=== PATIENT | male | born 1985 | race Caucasian/White ===

== ENCOUNTER 2020-12-12 00:55 | Emergency (ER) | payer BC, SELFPAY ==
[2020-12-12 01:05] VITALS: BP 150/78; PULSE 79; RESP 18; TEMP 36.6; O2SAT 98; BMI 40.0
[2020-12-12 01:40] LABS: MANUAL DIFF FLAG NO
[2020-12-12 01:43] LABS: Basophils Absolute Auto 0.1 X10*3/uL (0.0-0.2); Eosinophils Absolute Auto 0.3 X10*3/uL (0.0-0.4); Eosinophils Percent Auto 2.6 % (0-4); Hematocrit 42.4 % (42-52); Hemoglobin 13.9 g/dl (14.0-18.0); Imm Gran Abs Auto 0.04 X10*3/uL (0.00-0.03); Imm Gran Pct Auto 0.4 % (0.0-0.4); Lymphocytes Percent Auto 28.9 % (20-40); Mean Corpuscular HGB Conc 32.8 g/dl (31.0-36.0); Mean Corpuscular Hemoglobin 27.7 pg (27.0-33.0); Mean Corpuscular Volume 84.6 fL (80-98); Mean Platelet Volume 10.4 fL (9.4-12.4); Monocytes Absolute Auto 0.5 X10*3/uL (0.1-1.2); Monocytes Percent Auto 4.9 % (2-11); Neutrophils Absolute Auto 6.3 X10*3/uL (2.0-8.3); Neutrophils Percent Auto 62.2 % (45-73); Platelet Count 230 X10*3/uL (160-400); Red Blood Count 5.01 X10*6/uL (4.60-5.80); Red Cell Distribution Width 13.9 % (11.0-16.0); White Blood Count 10.2 X10*3/uL (4.8-10.8)
[2020-12-12 01:47] LABS: Glucose Urine UA NEG (NEG); Leukocyte Esterase Urine NEG (NEG); Nitrite Urine NEG (NEG); Specific Gravity - Urine >= 1.030 (1.005-1.025); Urine Blood NEG (NEG); Urine Ketones NEG (NEG); Urine Protein NEG (NEG-TRACE)
[2020-12-12 01:51] LABS: Appearance Urine CLEAR; Color Urine DARK YELLOW; UACC Culture Trigger NO
[2020-12-12 02:08] LABS: Lipase 43 U/L (8-78)
[2020-12-12 02:11] LABS: Alanine Aminotransferase 27 U/L (0-40); Albumin Level 4.1 g/dL (3.5-5.0); Alkaline Phosphatase 67 U/L (39-117); Anion Gap 15 (12-20); Aspartate Amino Transferase 19 U/L (5-37); Bilirubin Total 0.4 mg/dL (0.0-1.0); Blood Urea Nitrogen 19 mg/dL (9-16); Calcium 8.7 mg/dL (8.4-10.2); Carbon Dioxide 20 mmol/L (22-29); Chloride 109 mmol/L (96-108); Creatinine Clr Calc Pharmacy 141.8; Estimated Glomerular Filt Rate > 60; Glucose Random 143 mg/dL (60-115); Potassium 3.6 mmol/l (3.3-5.1); Sodium 140 mmol/L (135-145)
--- NOTE | 2020-12-12 03:53 | ED.ABDPAIN ---
HPI - Abdominal Pain General Chief Complaint: Abdominal Pain Stated Complaint: Abd pain Time Seen by Provider: 12/12/20 01:07 Source: patient Mode of arrival: ambulatory History of Present Illness HPI narrative: This is a 35-year-old male with history of Crohn's and is not currently on any medication who presents with onset of diffuse abdominal discomfort at approximately 1:00 p.m. yesterday that has remained constant, crampy and not associated with any fevers, chills, nausea, vomiting, but states he had a large bowel movement prior to coming in and he states that the pain increased afterwards. The bowel movement was not diarrheal in nature and did not contain any observed blood. Otherwise, patient denies any urinary pain/burning/frequency Related Data Allergies Allergy/AdvReac Type Severity Reaction Status Date / Time No Known Allergies Allergy Verified 12/12/20 01:13 [No Known Allergies*] Review of Systems Review of Systems Pertinent positives and negatives as stated in HPI Physical Exam Vital Signs: Vital Signs: Last Vital Signs Temp 97.9 F 12/12/20 01:05 Pulse 60 12/12/20 05:12 Resp 18 12/12/20 01:05 BP 112/57 L 12/12/20 05:12 Pulse Ox 98 12/12/20 01:05 Body Mass Index 40.0 VITAL SIGNS: Reviewed. GENERAL: Well developed, well nourished, in no acute distress. HEAD: Normocephalic/atraumatic, EYES: PERRLA, EOMI EARS: Ext canals without abnormality, TMs non-bulging and non-erythematous NOSE: Nares patent bilateral OROPHARYNX: no oral lesions noted, posterior pharynx clear and non-erythematous without noted tonsillar enlargement/erythema/exudates NECK: Supple, no adenopathy LUNGS: Normal breath sounds. No adventitious sounds or accessory muscle use. SpO2<98> CARDIOVASCULAR: Regular rate and rhythm without noted murmurs, no JVD or lower extremity edema. ABDOMEN: Soft, diffusely tender without rebound, non-distended with bowel sounds. SKIN: Inspection of the skin reveals no rashes NEUROLOGIC: Alert and oriented x 4. Course Course Course Narrative: This is a 35-year-old male with history and clinical presentation likely consistent with Crohn's flare, doubt SBO. Review of all investigations is negative for any acute findings to include CT scan negative for any intra-abdominal or intrapelvic abnormalities. All results and findings were discussed with patient at bedside to include the findings several nonobstructing kidney stones which he was informed may have passed and that may have been 1 of the reasons for his abdominal discomfort. Patient was discharged to home in stable condition. MDM - Abdominal Pain Lab Data Result diagrams: 12/12/20 01:24 12/12/20 01:24 Labs: Lab Results 12/12/20 12/12/20 12/12/20 Range/Units 01:24 01:24 01:24 WBC 10.2 (4.8-10.8) X10*3/uL RBC 5.01 (4.60-5.80) X10*6/uL Hgb 13.9 L (14.0-18.0) g/dl Hct 42.4 (42-52) % MCV 84.6 (80-98) fL MCH 27.7 (27.0-33.0) pg MCHC 32.8 (31.0-36.0) g/dl RDW 13.9 (11.0-16.0) % Plt Count 230 (160-400) X10*3/uL MPV 10.4 (9.4-12.4) fL Immature Gran % (Auto) 0.4 (0.0-0.4) % Neut % (Auto) 62.2 (45-73) % Lymph % (Auto) 28.9 (20-40) % [place] % (Auto) 4.9 (2-11) % Eos % (Auto) 2.6 (0-4) % Baso % (Auto) 1.0 (0-2) % Lymph # (Auto) 3.0 (1.2-4.9) X10*3/uL [place] # (Auto) 0.5 (0.1-1.2) X10*3/uL Eos # (Auto) 0.3 (0.0-0.4) X10*3/uL Baso # (Auto) 0.1 (0.0-0.2) X10*3/uL Abs Immat Gran (auto) 0.04 H (0.00-0.03) X10*3/uL Absolute Neuts (auto) 6.3 (2.0-8.3) X10*3/uL Absolute Nucleated RBC 0.000 (0.0-0.012) X10*3/uL Nucleated RBC % (auto) 0.0 (0.0-0.2) /100WBC Sodium 140 (135-145) mmol/L Potassium 3.6 (3.3-5.1) mmol/l Chloride 109 H (96-108) mmol/L Carbon Dioxide 20 L (22-29) mmol/L Anion Gap 15 (12-20) BUN 19 H (9-16) mg/dL Creatinine 1.02 (0.5-1.4) mg/dL Estim Creat Clear Calc 141.8 Estimated GFR > 60 Random Glucose 143 H (60-115) mg/dL Calcium 8.7 (8.4-10.2) mg/dL Total Bilirubin 0.4 (0.0-1.0) mg/dL AST 19 (5-37) U/L ALT 27 (0-40) U/L Alkaline Phosphatase 67 (39-117) U/L Total Protein 7.0 (6.5-8.0) g/dL Albumin 4.1 (3.5-5.0) g/dL Lipase 43 (8-78) U/L Urine Color Urine Appearance Urine pH (5.0-8.0) Ur Specific [place] (1.005-1.025) Urine Protein (NEG-TRACE) MG/DL Urine Glucose (UA) (NEG) MG/DL Urine Ketones (NEG) MG/DL Urine Blood (NEG) Urine Nitrite (NEG) Ur Leukocyte Esterase (NEG) 12/12/20 Range/Units 01:24 WBC (4.8-10.8) X10*3/uL RBC (4.60-5.80) X10*6/uL Hgb (14.0-18.0) g/dl Hct (42-52) % MCV (80-98) fL MCH (27.0-33.0) pg MCHC (31.0-36.0) g/dl RDW (11.0-16.0) % Plt Count (160-400) X10*3/uL MPV (9.4-12.4) fL Immature Gran % (Auto) (0.0-0.4) % Neut % (Auto) (45-73) % Lymph % (Auto) (20-40) % [place] % (Auto) (2-11) % Eos % (Auto) (0-4) % Baso % (Auto) (0-2) % Lymph # (Auto) (1.2-4.9) X10*3/uL [place] # (Auto) (0.1-1.2) X10*3/uL Eos # (Auto) (0.0-0.4) X10*3/uL Baso # (Auto) (0.0-0.2) X10*3/uL Abs Immat Gran (auto) (0.00-0.03) X10*3/uL Absolute Neuts (auto) (2.0-8.3) X10*3/uL Absolute Nucleated RBC (0.0-0.012) X10*3/uL Nucleated RBC % (auto) (0.0-0.2) /100WBC Sodium (135-145) mmol/L Potassium (3.3-5.1) mmol/l Chloride (96-108) mmol/L Carbon Dioxide (22-29) mmol/L Anion Gap (12-20) BUN (9-16) mg/dL Creatinine (0.5-1.4) mg/dL Estim Creat Clear Calc Estimated GFR Random Glucose (60-115) mg/dL Calcium (8.4-10.2) mg/dL Total Bilirubin (0.0-1.0) mg/dL AST (5-37) U/L ALT (0-40) U/L Alkaline Phosphatase (39-117) U/L Total Protein (6.5-8.0) g/dL Albumin (3.5-5.0) g/dL Lipase (8-78) U/L Urine Color DARK YELLOW Urine Appearance CLEAR Urine pH 6.0 (5.0-8.0) Ur Specific [place] >= 1.030 H (1.005-1.025) Urine Protein NEG (NEG-TRACE) MG/DL Urine Glucose (UA) NEG (NEG) MG/DL Urine Ketones NEG (NEG) MG/DL Urine Blood NEG (NEG) Urine Nitrite NEG (NEG) Ur Leukocyte Esterase NEG (NEG) Discharge Plan Discharge Clinical Impression: Abdominal pain Qualifiers: Abdominal location: unspecified location Qualified Code(s): R10.9 - Unspecified abdominal pain Patient Disposition: Home, Self-Care Instructions: Abdominal Pain (ED), Kidney Stones (ED) Additional Instructions: 1. Increase fluid hydration especially with water. Avoid carbonated and caffeinated beverages as much as possible. 2. Tylenol 1000 mg, orally, every 6 hours as needed pain control. Do not exceed 4000 mg within 24 hours. 3. Ibuprofen 400 mg, orally with milk or food, every 6 hours as needed for pain control. 4. Please follow-up with your primary care provider for re-evaluation outpatient management should your symptoms persist. 5. Please consider follow-up with a urologist for further evaluation of your kidney stones. Please do not hesitate to return to the emergency department should you have any acute worsening of your symptoms. Referrals: Physician,Unknown [Primary Care Provider] - 2 days (Evaluation of patient management abdominal discomfort) PMFSH Past Medical History Source: nursing notes reviewed Medical History Acute Crohn's disease GERD (gastroesophageal reflux disease) Pericarditis Social History Social History Smoked in Last 30 Days: No Advance Directives: No Advance Directives Information Provided: No
--- NOTE | 2020-12-12 03:54 | CT_ITS ---
EXAMINATION: CT ABDOMEN AND PELVIS WITH CONTRAST CLINICAL INFORMATION: Abdominal pain. COMPARISON: None TECHNIQUE: Multidetector volumetric images were obtained from the superior aspect of the liver through the pubic symphysis following administration 100 mL of Omnipaque 350 intravenous contrast. Sagittal and coronal reformatted images were obtained on the technologist's workstation. Oral contrast: No This CT examination was performed using dose optimization techniques as appropriate, variously including the following: *Automated exposure control *Adjustment of mA and/or kV according to patient size (this includes techniques or standardized protocols for targeted exams where dose is matched to indication/reason for exam; i.e. extremities or head) *Use of iterative reconstruction technique DLP: 1042 mGy-cm FINDINGS: LUNG BASES: The visualized lung bases are unremarkable. LIVER, GALLBLADDER, AND BILIARY TREE: Relative hypoattenuation of the hepatic parenchyma is most consistent with steatosis. Liver is enlarged, measuring 20 cm craniocaudal. No focal lesions or ductal dilatation. Hepatic contour is normal. The gallbladder is unremarkable with no evidence of radiopaque gallstones, gallbladder wall thickening, or obvious pericholecystic inflammatory changes. PANCREAS: Unremarkable. SPLEEN: Borderline enlarged, measuring 14.1 cm in greatest diameter. ADRENAL GLANDS: Unremarkable. KIDNEYS AND URETERS: Multiple bilateral nonobstructing renal calculi are identified, at least 4 in each kidney. These measure up to 2 mm in diameter. The kidneys are normal in size, shape, and attenuation. No hydronephrosis or hydroureter. No perinephric stranding. The right renal collecting system may be partially duplicated. Alternatively, there is an accessory vascular structure extending from the right renal sinus inferiorly along the course of the ureter, terminating at the level of L4. The latter possibility is favored as this structure is relatively dense, closer to the attenuation value of a vessel than a ureter. Ureters are otherwise normal in appearance. BLADDER: Unremarkable. GASTROINTESTINAL TRACT: Stomach, small bowel, and colon are normal in caliber. No bowel wall thickening or surrounding inflammatory changes. Appendix is normal. No intraperitoneal free fluid or free air. ABDOMINAL WALL: No significant hernia is appreciated. LYMPH NODES: Normal. VASCULAR: Unremarkable. PELVIC VISCERA: A few dystrophic calcifications are present in the prostate gland. Prostate gland is otherwise normal. OSSEOUS STRUCTURES: No acute osseous abnormalities. Mild anterior wedging of the T12 and L1 vertebral bodies is likely developmental. Posterior disc protrusions are present at L4-L5 and L5-S1. No acute fractures are identified. CT/CT abdomen pelvis w con IMPRESSION: No acute intra-abdominal or intrapelvic abnormalities. Multiple nonobstructing bilateral renal calculi. No evidence of obstructive uropathy. Hepatic steatosis. Mild hepatosplenomegaly, potentially related to body habitus.
[2020-12-12] MEDS: 0.9 % Sodium Chloride 1,000 ML 999 ML IV (04:39)
[2020-12-12] MEDS: iohexoL 350 MG/ML 100 ML INFUS..BTL IV (04:42)
[2020-12-12 05:12] VITALS: BP 112/57; PULSE 60
[2020-12-12] MEDS: Ketorolac Tromethamine 15 MG/ML VIAL IVPUSH (05:18)
[2020-12-12] MEDS: Acetaminophen 325 MG TABLET 975 MG PO (05:18)
== END 2020-12-12 06:06 | disposition home or self-care (01) ==
PROVIDERS: Emergency Provider Student in an Organized Health Care Education/Training Program
DX: R10.9 Unspecified abdominal pain (principal); N20.0 Calculus of kidney; K50.90 Crohn's disease, unspecified, without complications
CPT/HCPCS: 36415; 74177; 80053; 81003; 83690; 85025; 96361; 96374; 99284; J1885; Q9967

== ENCOUNTER 2020-12-18 15:36 | Emergency (ER) | payer BC, SELFPAY ==
[2020-12-18 16:14] VITALS: BP 134/92; PULSE 115; RESP 20; TEMP 36.8; O2SAT 98; BMI 39.3
[2020-12-18 17:15] LABS: MANUAL DIFF FLAG NO
[2020-12-18 17:23] LABS: Basophils Absolute Auto 0.1 X10*3/uL (0.0-0.2); Basophils Percent Auto 0.3 % (0-2); Eosinophils Absolute Auto 0.1 X10*3/uL (0.0-0.4); Eosinophils Percent Auto 0.7 % (0-4); Hematocrit 52.6 % (42-52); Hemoglobin 17.2 g/dl (14.0-18.0); Imm Gran Abs Auto 0.06 X10*3/uL (0.00-0.03); Imm Gran Pct Auto 0.3 % (0.0-0.4); Lymphocytes Absolute Auto 1.2 X10*3/uL (1.2-4.9); Lymphocytes Percent Auto 7.1 % (20-40); Mean Corpuscular HGB Conc 32.7 g/dl (31.0-36.0); Mean Corpuscular Hemoglobin 27.8 pg (27.0-33.0); Mean Platelet Volume 10.2 fL (9.4-12.4); Monocytes Percent Auto 5.7 % (2-11); Neutrophils Percent Auto 85.9 % (45-73); Platelet Count 307 X10*3/uL (160-400); Red Blood Count 6.19 X10*6/uL (4.60-5.80); Red Cell Distribution Width 14.2 % (11.0-16.0); White Blood Count 17.4 X10*3/uL (4.8-10.8)
[2020-12-18 17:42] LABS: Anion Gap 15 (12-20); Blood Urea Nitrogen 14 mg/dL (9-16); Calcium 9.3 mg/dL (8.4-10.2); Carbon Dioxide 22 mmol/L (22-29); Chloride 109 mmol/L (96-108); Creatinine Clr Calc Pharmacy 126.7; Estimated Glomerular Filt Rate > 60; Glucose Random 93 mg/dL (60-115); Potassium 4.3 mmol/l (3.3-5.1); Sodium 142 mmol/L (135-145)
[2020-12-18 19:23] VITALS: BP 138/85; PULSE 111; RESP 20; TEMP 37.3; O2SAT 95
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
[2020-12-18 20:09] LABS: Alanine Aminotransferase 34 U/L (0-40); Alkaline Phosphatase 87 U/L (39-117); Aspartate Amino Transferase 23 U/L (5-37); Bilirubin Direct 0.3 mg/dL (0.0-0.5); Bilirubin Total 0.7 mg/dL (0.0-1.0); Lipase 93 U/L (8-78); Total Protein 8.5 g/dL (6.5-8.0)
[2020-12-18] MEDS: Ketorolac Tromethamine 30 MG/ML VIAL IVPUSH (20:29)
[2020-12-18] MEDS: ondansetron HCL 4 MG/2 ML VIAL IVPUSH (20:31)
[2020-12-18 20:32] VITALS: BP 140/89; PULSE 104; RESP 16; TEMP 37.4; O2SAT 95
[2020-12-18] MEDS: 0.9 % Sodium Chloride 1,000 ML 999 ML IV ×3 (20:32→22:32)
[2020-12-18 20:48] LABS: COVID-19 Test Negative (Negative)
[2020-12-18 21:24] VITALS: RESP 18
[2020-12-18] MEDS: Morphine Sulfate 4 MG/ML CARTRIDGE IVPUSH ×2 (21:24→22:31)
[2020-12-18 21:29] LABS: CDIFF Ag Negative (Negative); CDIFF Internal ctrl Dots and bkg OK (V); CDiff Toxin Negative (Negative)
--- NOTE | 2020-12-18 22:12 | CT_ITS ---
EXAMINATION: CT ABDOMEN AND PELVIS WITH CONTRAST CLINICAL INFORMATION: Right-sided abdominal pain with severe diarrhea COMPARISON: CT abdomen pelvis 12/12/2019 TECHNIQUE: Multidetector volumetric images were obtained from the superior aspect of the liver through the pubic symphysis following administration 85 mL of Omnipaque 350 intravenous contrast. Sagittal and coronal reformatted images were obtained on the technologist's workstation. Oral contrast: No This CT examination was performed using dose optimization techniques as appropriate, variously including the following: *Automated exposure control *Adjustment of mA and/or kV according to patient size (this includes techniques or standardized protocols for targeted exams where dose is matched to indication/reason for exam; i.e. extremities or head) *Use of iterative reconstruction technique DLP: 995 mGy-cm FINDINGS: LUNG BASES: The visualized lung bases are unremarkable. LIVER, GALLBLADDER, AND BILIARY TREE: Liver demonstrates slightly decreased attenuation suggesting hepatic steatosis. There is some areas of focal fatty sparing around the gallbladder. No focal hepatic mass or bile duct dilatation is seen. The gallbladder is unremarkable with no evidence of radiopaque gallstones, gallbladder wall thickening, or obvious pericholecystic inflammatory changes. PANCREAS: Unremarkable. SPLEEN: Unremarkable. ADRENAL GLANDS: Unremarkable. KIDNEYS AND URETERS: The kidneys are normal in size, shape, and attenuation. Bilateral small nonobstructing renal calculi are present with at least 6 stones on the right and 5 on the left. No hydronephrosis or hydroureter seen. No perinephric stranding. BLADDER: Unremarkable. GASTROINTESTINAL TRACT: The small and large bowel are unremarkable. The appendix is none seen but there is no evidence of appendicitis.. ABDOMINAL WALL: No significant hernia is appreciated. LYMPH NODES: Some prominent courtney hepatis nodes are seen the largest measuring 2.9 x 1.5 x 3.3 cm (series 3 image 32). No retroperitoneal lymphadenopathy is seen. VASCULAR: Unremarkable. PELVIC VISCERA: Unremarkable. OSSEOUS STRUCTURES: Unremarkable. CT/CT abdomen pelvis w con IMPRESSION: 1. Bilateral small nonobstructing renal calculi 2. A cause for the right-sided pain and diarrhea has not been found. 3. Prominent courtney hepatis nodes. 4. Hepatic steatosis
[2020-12-18] MEDS: diphenhydrAMINE HCL 50 MG/ML VIAL IVPUSH (22:30)
[2020-12-18] MEDS: Metoclopramide HCl 10 MG/2 ML VIAL IVPUSH (22:30)
[2020-12-18 22:55] VITALS: BP 123/73; PULSE 93; RESP 16; O2SAT 97
[2020-12-18] MEDS: iohexoL 350 MG/ML 100 ML INFUS..BTL 85 ML IV (23:48)
[2020-12-19 01:30] VITALS: BP 114/55; PULSE 91; RESP 18; TEMP 37.2; O2SAT 95
== END 2020-12-19 01:35 | disposition home or self-care (01) ==
PROVIDERS: Emergency Provider Emergency Medicine Emergency Medical Services
DX: K52.9 Noninfective gastroenteritis and colitis, unspecified (principal); Z87.891 Personal history of nicotine dependence; Z20.822 Contact with and (suspected) exposure to COVID-19; Z79.899 Other long term (current) drug therapy
CPT/HCPCS: 36415; 74177; 80048; 80076; 83690; 85025; 87045; 87046; 87324; 87449; 87635; 96361; 96374; 96375; 96376; 99285; J1200; J1885; J2270; J2405; J2765; Q9967

== ENCOUNTER 2021-04-15 18:46 | Emergency (ER) | payer BC, SELFPAY ==
--- NOTE | ~2021-04-15 | CT_ITS ---
EXAMINATION: CT ABDOMEN AND PELVIS WITHOUT CONTRAST CLINICAL INFORMATION: Left flank pain COMPARISON: 12/18/2020 TECHNIQUE: Multidetector volumetric imaging was performed from the superior aspect of the liver through the pubic symphysis. Sagittal and coronal reformatted images were obtained on the technologist's workstation. This CT examination was performed using dose optimization techniques as appropriate, variously including the following: *Automated exposure control *Adjustment of mA and/or kV according to patient size (this includes techniques or standardized protocols for targeted exams where dose is matched to indication/reason for exam; i.e. extremities or head) *Use of iterative reconstruction technique DLP: 1218 mGy-cm FINDINGS: The lack of intravenous contrast limits evaluation of the solid visceral organs including the liver, spleen, pancreas, and kidneys. LUNG BASES: The visualized lung bases are unremarkable. LIVER, GALLBLADDER, AND BILIARY TREE: Liver is hypoattenuating relative to the spleen consistent with diffuse hepatic steatosis. No focal lesion seen. The gallbladder is unremarkable with no evidence of radiopaque gallstones, gallbladder wall thickening, or obvious pericholecystic inflammatory changes. PANCREAS: Unremarkable. SPLEEN: Unremarkable. ADRENAL GLANDS: Unremarkable. KIDNEYS AND URETERS: There are numerous bilateral renal calculi up to 3 mm on the right 1-2 mm on the left. No right hydronephrosis. There is mild left hydroureteronephrosis and asymmetric left perinephric stranding. There is a 2 mm left proximal ureteral calculus in image 74/121 BLADDER: No calculi or mass. GASTROINTESTINAL TRACT: The small and large bowel are unremarkable. The appendix is unremarkable. ABDOMINAL WALL: Small fat-containing umbilical hernia. LYMPH NODES: Again seen is a prominent precaval lymph node in the courtney hepatis measuring 2.6 x 1.5 cm in image 36/121. VASCULAR: Normal caliber aorta. PELVIC VISCERA: The prostate and seminal vesicles are unremarkable. OSSEOUS STRUCTURES: Unremarkable. CT/CT abdomen pelvis wo con IMPRESSION: 2 mm left proximal ureteral calculus results in mild left hydroureteronephrosis and asymmetric left perinephric stranding. Additional tiny nonobstructing calculi are seen bilaterally. Diffuse hepatic steatosis. Unchanged prominent courtney hepatis lymph node.
[2021-04-15 18:58] VITALS: BP 137/84; PULSE 80; RESP 16; TEMP 36.4; O2SAT 98; BMI 40.4
--- NOTE | 2021-04-15 19:59 | PC.NURSE ---
Pt unable to provide urine sample despite constant prompting.
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
[2021-04-15] MEDS: Ketorolac Tromethamine 30 MG/ML VIAL IVPUSH (21:44)
[2021-04-15 21:45] VITALS: RESP 16
[2021-04-15] MEDS: Morphine Sulfate 4 MG/ML CARTRIDGE IVPUSH (21:45)
[2021-04-15] MEDS: ondansetron HCL 4 MG/2 ML VIAL IVPUSH (21:48)
[2021-04-15] MEDS: 0.9 % Sodium Chloride 1,000 ML 999 ML IVCONT (21:48)
[2021-04-15 21:53] LABS: MANUAL DIFF FLAG NO
[2021-04-15 21:55] LABS: Basophils Absolute Auto 0.1 X10*3/uL (0.0-0.2); Basophils Percent Auto 0.8 % (0-2); Eosinophils Absolute Auto 0.1 X10*3/uL (0.0-0.4); Eosinophils Percent Auto 0.7 % (0-4); Hemoglobin 15.2 g/dl (14.0-18.0); Imm Gran Abs Auto 0.06 X10*3/uL (0.00-0.03); Imm Gran Pct Auto 0.4 % (0.0-0.4); Lymphocytes Absolute Auto 1.3 X10*3/uL (1.2-4.9); Lymphocytes Percent Auto 8.6 % (20-40); Mean Corpuscular HGB Conc 32.3 g/dl (31.0-36.0); Mean Corpuscular Volume 86.7 fL (80-98); Mean Platelet Volume 10.2 fL (9.4-12.4); Monocytes Absolute Auto 0.6 X10*3/uL (0.1-1.2); Monocytes Percent Auto 3.9 % (2-11); Neutrophils Absolute Auto 12.7 X10*3/uL (2.0-8.3); Neutrophils Percent Auto 85.6 % (45-73); Platelet Count 271 X10*3/uL (160-400); Red Blood Count 5.42 X10*6/uL (4.60-5.80); White Blood Count 14.8 X10*3/uL (4.8-10.8)
[2021-04-15 22:16] LABS: Anion Gap 17 (12-20); Blood Urea Nitrogen 23 mg/dL (9-16); Calcium 9.3 mg/dL (8.4-10.2); Carbon Dioxide 22 mmol/L (22-29); Chloride 108 mmol/L (96-108); Creatinine Clr Calc Pharmacy 93.1; Estimated Glomerular Filt Rate 51; Glucose Random 111 mg/dL (60-115); Potassium 4.5 mmol/L (3.3-5.1); Sodium 142 mmol/L (135-145)
[2021-04-15 22:17] LABS: Alanine Aminotransferase 63 U/L (0-40); Albumin Level 4.9 g/dL (3.5-5.0); Alkaline Phosphatase 80 U/L (39-117); Aspartate Amino Transferase 36 U/L (5-37); Bilirubin Direct 0.2 mg/dL (0.0-0.5); Bilirubin Total 0.8 mg/dL (0.0-1.0); Lipase 30 U/L (8-78); Total Protein 8.3 g/dL (6.5-8.0)
[2021-04-15 22:27] LABS: Glucose Urine UA NEG (NEG); Leukocyte Esterase Urine NEG (NEG); Nitrite Urine NEG (NEG); Specific Gravity - Urine 1.025 (1.005-1.025); Urine Blood 3+ (NEG); Urine Ketones NEG (NEG); Urine Protein TRACE MG/DL (NEG-TRACE)
[2021-04-15 22:30] LABS: Appearance Urine CLEAR; Color Urine YELLOW
[2021-04-15 22:45] LABS: Mucus Urine 1+ /LPF; Red Blood Cell Casts Urine 0-2 /LPF; Squamous Epithelial Cell Urine TRACE /LPF
[2021-04-15 22:46] LABS: Amorphous Sediment Urine TRACE /LPF
[2021-04-15 22:53] VITALS: RESP 16
[2021-04-15 22:54] VITALS: RESP 16
[2021-04-16] MEDS: 0.9 % Sodium Chloride 1,000 ML 999 ML IVCONT (00:37)
[2021-04-16] MEDS: Tamsulosin HCL 0.4 MG CAPSULE PO (01:01)
[2021-04-16] MEDS: predniSONE 20 MG TABLET 60 MG PO (01:01)
== END 2021-04-16 01:11 | disposition home or self-care (01) ==
PROVIDERS: Emergency Provider Emergency Medicine; PCP Family Medicine
DX: N13.2 Hydronephrosis with renal and ureteral calculous obstruction (principal); E86.0 Dehydration; Z87.442 Personal history of urinary calculi
CPT/HCPCS: 36415; 74176; 80048; 80076; 81001; 83690; 83735; 85025; 96361; 96374; 96375; 99283; 99284; J1885; J2270; J2405

== ENCOUNTER 2021-04-16 22:22 | Day surgery (SDC) | payer BC, SELFPAY ==
--- NOTE | ~2021-04-16 | FL_ITS ---
EXAMINATION: XR FLUOROSCOPY WITH IMAGES CLINICAL INFORMATION: Left retrograde exam COMPARISON: Previous CT of the abdomen and pelvis 04/16/2021 TECHNIQUE: Fluoroscopy performed by Dr. Robbin Huang. Fluoroscopy time: 1 minutes DAP: 42 mGycm2 Images: 2 FINDINGS: Images demonstrate a catheter projecting over the left ureter. FL/FL guidance in OR IMPRESSION: Fluoroscopy guidance for left retrograde exam.
[2021-04-16 21:50] VITALS: BP 141/82; PULSE 91; RESP 18; TEMP 36.7; O2SAT 98; BMI 39.7
[2021-04-16 22:18] VITALS: BP 139/70; PULSE 80; RESP 16; TEMP 36.8; O2SAT 97
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
[2021-04-16 22:27] LABS: Glucose Urine UA NEG (NEG); Leukocyte Esterase Urine NEG (NEG); Nitrite Urine NEG (NEG); Specific Gravity - Urine >= 1.030 (1.005-1.025); Urine Blood 2+ (NEG); Urine Ketones NEG (NEG); Urine Protein 1+ MG/DL (NEG-TRACE)
[2021-04-16 22:35] LABS: MANUAL DIFF FLAG NO
[2021-04-16 22:37] LABS: Basophils Percent Auto 0.2 % (0-2); Eosinophils Percent Auto 0.1 % (0-4); Hematocrit 42.5 % (42-52); Hemoglobin 13.9 g/dl (14.0-18.0); Imm Gran Abs Auto 0.09 X10*3/uL (0.00-0.03); Imm Gran Pct Auto 0.5 % (0.0-0.4); Lymphocytes Absolute Auto 1.1 X10*3/uL (1.2-4.9); Lymphocytes Percent Auto 6.4 % (20-40); Mean Corpuscular HGB Conc 32.7 g/dl (31.0-36.0); Mean Corpuscular Volume 85.5 fL (80-98); Mean Platelet Volume 10.5 fL (9.4-12.4); Monocytes Absolute Auto 1.1 X10*3/uL (0.1-1.2); Monocytes Percent Auto 6.4 % (2-11); Neutrophils Absolute Auto 15.2 X10*3/uL (2.0-8.3); Neutrophils Percent Auto 86.4 % (45-73); Platelet Count 276 X10*3/uL (160-400); Red Blood Count 4.97 X10*6/uL (4.60-5.80); Red Cell Distribution Width 13.9 % (11.0-16.0); White Blood Count 17.6 X10*3/uL (4.8-10.8)
[2021-04-16 22:41] LABS: Appearance Urine CLEAR; Color Urine YELLOW
[2021-04-16 22:48] LABS: Squamous Epithelial Cell Urine TRACE /LPF; WBC Urine 0-2 /HPF (0-4)
[2021-04-16 23:06] LABS: Anion Gap 16 (12-20); Blood Urea Nitrogen 20 mg/dL (9-16); Calcium 9.2 mg/dL (8.4-10.2); Carbon Dioxide 21 mmol/L (22-29); Chloride 108 mmol/L (96-108); Estimated Glomerular Filt Rate 56; Glucose Random 156 mg/dL (60-115); Potassium 4.6 mmol/L (3.3-5.1); Sodium 140 mmol/L (135-145)
[2021-04-16] MEDS: 0.9 % Sodium Chloride 1,000 ML 999 ML IV (23:25)
[2021-04-16] MEDS: Ketorolac Tromethamine 15 MG/ML VIAL IVPUSH (23:25)
[2021-04-17] VITALS (25 sets, daily range): BP systolic 101–152; BP diastolic 59–86; PULSE 59–84; RESP 14–21; TEMP 36.3–36.8; O2SAT 95–99; BMI 39.7
[2021-04-17] MEDS: HYDROmorphone HCl 0.5 MG/0.5 ML SYRINGE 0.25 MG IVPUSH (02:41)
--- NOTE | 2021-04-17 03:40 | PC.NURSE ---
TAKING OVER CARE FOR THIS PATIENT, PLAN OF CARE FOR CONSULT WITH UROLOGY IN THE AM. PATIENT ABLE TO AMBULATE STEADILY TO THE RESTROOM NO DISTRESS NOTED.
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
[2021-04-17] MEDS: levoFLOXacin 500 MG TABLET PO (08:38)
[2021-04-17 09:54] LABS: COVID-19 Test Negative (Negative); IDNOW Serial# 9DD0AD1C
--- NOTE | 2021-04-17 09:59 | PC.NURSE ---
REPORT GIVEN TO SSS
[2021-04-17] MEDS: Lactated Ringers 1,000 ML 100 ML IVCONT (10:45)
--- NOTE | 2021-04-17 10:45 | PC.NURSE ---
Patient arrived to [facility] with #20 angio in right AC. Flushes well, site asymptomatic.
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
--- NOTE | 2021-04-17 12:13 | MHC.SHP ---
Pre-Procedural Eval Section A The patient is an INPATIENT: No Changes since office visit: Yes Cold of Flu in the past 2 weeks, Yes New Medical Problems, Yes Changes in Medication and Yes Patient answered all questions The History & Physical has been completed within 30 days and I have reviewed it.: Yes Section B Chief Complaint: Kidney Stone? Allergies: Allergies Allergy/AdvReac Type Severity Reaction Status Date / Time No Known Allergies Allergy Verified 04/15/21 19:03 [No Known Allergies*] Plan Diagnosis/Plan: Unchanged (left retrograde, ureteroscopy, laser) I have reviewed the history and physical and performed a pertinent physical examination on my patient. No changes have occurred unless specified.
[2021-04-17] MEDS: oxyCODONE HCl Immed Release 5 MG TABLET 10 MG PO (13:35)
[2021-04-17] MEDS: Acetaminophen 325 MG TABLET 650 MG PO (13:35)
--- NOTE | 2021-04-17 13:50 | W.PM.OPN ---
Operative Note Operative Note Date of Service: 04/17/21 Narrative: PreOperative Diagnosis: Left proximal ureteric stone Post Operative Diagnosis: Left proximal ureteric stone Procedure: - left cystoscopy, retrograde - left dilatation of ureteric orifice under fluoroscopy - left ureteroscopy, laser lithotripsy, stone basketing Surgeon: Dr Robbin Huang Anesthesia: General Indications for procedure: Presentation through emergency room today. Prior stone passage and stone intervention. Did not tolerate stent. Based on this being his 2nd presentation emergency room recommend ureteroscopy with laser lithotripsy. Procedure: After informed consent was verified patient was brought to the operating placed in supine position. Anesthesia was administered per protocol. Patient was placed in modified dorsal lithotomy position and prepped and draped in a sterile fashion. Safety pause time-out and side of surgery confirmed. Antibiotics confirmed. Twenty-two Bengali cystoscope inserted per urethra. The urethra was noted to be narrowed and had to be dilated using a blue dilated. Bladder was entered. Retrograde examination performed on the left ureteric orifice. Filling defects seen in the proximal portion left ureter. Sensor guidewire was placed. Open-ended catheter placed. [place] dilator used to dilate lower portion ureteric orifice. Attempt made to pass flexible ureteroscope. Unable to pass. Dilated ureter with inner cannula from ureteric access sheath. Access sheath placed. Stone Super Stiff wire placed digital ureteroscope advanced to the wire to the renal pelvis. Renal pelvis examined. Small 2 mm stone found that with likely obstructing stone. This was put in a stone basket and removed. Renal pelvis examined in its entirety. Small stones seen but were too small to basket. Digital scope removed., access sheath removed. Decision be made not to place stent. He tolerated procedure well was extubated in the operating room transferred in a stable condition recovery area Pathology: stones stones Drains:
[2021-04-17] MEDS: fentaNYL citrate/PF 100 MCG/2 ML VIAL 50 MCG IVPUSH ×4 (13:53→14:57)
[2021-04-17] MEDS: Phenazopyridine HCL 100 MG TABLET PO (14:05)
[2021-04-17] MEDS: Ketorolac Tromethamine 30 MG/ML VIAL IVPUSH (16:36)
--- NOTE | 2021-04-17 16:37 | PC.NURSE ---
dr. boyce contacted [facility] patient ongoing complaint significant left flank pain despite pain medication, pyridium. discussed patient expressed concerns with pain control no new orders given plan is for discharge to home. dr. boyce reports that patient renal stone was small and is now out. call out to dr. bray anesthesia to report ongoing pain control issues with patient. new orders given for iv toradol. administed iv toradol as ordered. patient educated plan of care. plan medicate with iv toradol.
== END 2021-04-17 10:15 | disposition admitted as inpatient to this hospital (09) ==
LOC: HO.ED 04-17 09:21 → HO.SSSA 04-17 13:50 → HO.SSS 04-17 17:24
PROVIDERS: Urology; Visit Provider Student in an Organized Health Care Education/Training Program
PROC: (CPT 52352; principal; 2021-04-17 11:40)
DX: N20.1 Calculus of ureter (principal); Z87.442 Personal history of urinary calculi; K50.90 Crohn's disease, unspecified, without complications; Z79.899 Other long term (current) drug therapy
CPT/HCPCS: 52352; 36415; 80048; 81001; 82365; 85025; 87635; 88300; C1758; C1769; C1894; J1100; J1170; J1885; J2250; J2405; J3010; Q9967

== ENCOUNTER 2021-04-20 21:58 | Emergency (ER) | payer BC, SELFPAY ==
[2021-04-20 22:07] VITALS: BP 145/82; PULSE 81; RESP 20; TEMP 37.1; O2SAT 95; BMI 40.4
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
[2021-04-20] MEDS: Morphine Sulfate 4 MG/ML CARTRIDGE IVPUSH (23:47)
[2021-04-20] MEDS: ondansetron HCL 4 MG/2 ML VIAL IVPUSH (23:47)
[2021-04-20] MEDS: 0.9 % Sodium Chloride 1,000 ML 999 ML IVCONT (23:47)
[2021-04-20] MEDS: Ketorolac Tromethamine 30 MG/ML VIAL IVPUSH (23:47)
[2021-04-21] MEDS: oxyCODONE HCl Immed Release 5 MG TABLET 10 MG PO (01:25)
== END 2021-04-21 01:30 | disposition home or self-care (01) ==
PROVIDERS: Emergency Provider Internal Medicine
DX: N20.0 Calculus of kidney (principal); R10.9 Unspecified abdominal pain; Z79.899 Other long term (current) drug therapy
CPT/HCPCS: 96365; 96375; 99283; 99284; J1885; J2270; J2405

== ENCOUNTER 2021-04-21 14:40 | Emergency (ER) | payer BC, SELFPAY ==
--- NOTE | ~2021-04-21 | CT_ITS ---
EXAMINATION: CT ABDOMEN AND PELVIS WITHOUT CONTRAST CLINICAL INFORMATION: Left-sided abdominal pain status post lithotripsy COMPARISON: None TECHNIQUE: Multidetector volumetric imaging was performed from the superior aspect of the liver through the pubic symphysis. Sagittal and coronal reformatted images were obtained on the technologist's workstation. This CT examination was performed using dose optimization techniques as appropriate, variously including the following: *Automated exposure control *Adjustment of mA and/or kV according to patient size (this includes techniques or standardized protocols for targeted exams where dose is matched to indication/reason for exam; i.e. extremities or head) *Use of iterative reconstruction technique DLP: 931 mGy-cm FINDINGS: LUNG BASES: The visualized lung bases are unremarkable. LIVER, GALLBLADDER, AND BILIARY TREE: Again seen is hepatic steatosis with some areas of sparing around the gallbladder. No focal hepatic lesion or biliary ductal dilatation is present. The gallbladder is unremarkable with no evidence of radiopaque gallstones, gallbladder wall thickening, or obvious pericholecystic inflammatory changes. PANCREAS: Unremarkable. SPLEEN: Unremarkable. ADRENAL GLANDS: Unremarkable. KIDNEYS AND URETERS: The kidneys are normal in size, shape, and attenuation. On the right, At least 7 punctate nonobstructing right renal calculi are present the largest measuring about 3 mm. No right-sided hydronephrosis or renal masses are seen in the right ureter appears normal. On the left, at least 3 punctate nonobstructing intrarenal calculi are seen the largest measuring 3 mm. Of note, there is left-sided hydronephrosis with a stone in the left mid ureter measuring 2 mm in size (4:518) probably responsible for the hydronephrosis. Some periureteral stranding and extravasation is noted just beyond this. Also present at the left ureterovesical junction is an additional even smaller approximately 1 mm calculus (4:788). No left-sided renal masses are seen. Because of the small size of the stones, Hounsfield units are not really pertinent. When comparison is made to the 04/16/2021 CT scan, there is been no real significant interval change, including the left mid ureteral calculus. The tiny calcification seen at the left ureterovesical junction was probably present previously but was much more difficult to appreciate. BLADDER: A tiny air bubble is present in the bladder. Unremarkable other than left ureterovesical junction-see above. GASTROINTESTINAL TRACT: The small and large bowel are unremarkable. The appendix is unremarkable. ABDOMINAL WALL: No significant hernia is appreciated. LYMPH NODES: Normal. VASCULAR: Unremarkable. PELVIC VISCERA: Prostate and seminal vesicles appear normal. OSSEOUS STRUCTURES: Unremarkable. CT/CT abdomen pelvis wo con IMPRESSION: 1. Bilateral nonobstructing intrarenal punctate calculi 2. Persistent left sided mild hydronephrosis with left ureteral calculus now with some perinephric stranding around the ureter at this level possibly secondary to lithotripsy. Please correlate clinically.
[2021-04-21 14:58] VITALS: BP 166/97; PULSE 79; RESP 22; TEMP 36; O2SAT 98; BMI 39.0
[2021-04-21 16:06] LABS: Glucose Urine UA NEG (NEG); Leukocyte Esterase Urine 1+ (NEG); Nitrite Urine POS (NEG); UACC Culture Trigger YES; Urine Blood 3+ (NEG); Urine Ketones 5 MG/DL (NEG); Urine Protein 1+ MG/DL (NEG-TRACE)
[2021-04-21 16:10] LABS: Appearance Urine CLOUDY; Color Urine YELLOW
[2021-04-21 16:21] LABS: Bacteria Urine TRACE /LPF; RBC Urine TNTC /HPF (0)
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
[2021-04-21 17:35] LABS: MANUAL DIFF FLAG NO
[2021-04-21 17:45] LABS: Basophils Absolute Auto 0.1 X10*3/uL (0.0-0.2); Basophils Percent Auto 0.7 % (0-2); Eosinophils Absolute Auto 0.2 X10*3/uL (0.0-0.4); Eosinophils Percent Auto 1.1 % (0-4); Hematocrit 44.3 % (42-52); Hemoglobin 14.2 g/dl (14.0-18.0); Imm Gran Abs Auto 0.11 X10*3/uL (0.00-0.03); Imm Gran Pct Auto 0.7 % (0.0-0.4); Lymphocytes Absolute Auto 1.8 X10*3/uL (1.2-4.9); Lymphocytes Percent Auto 11.7 % (20-40); Mean Corpuscular HGB Conc 32.1 g/dl (31.0-36.0); Mean Corpuscular Hemoglobin 27.8 pg (27.0-33.0); Mean Corpuscular Volume 86.7 fL (80-98); Mean Platelet Volume 9.9 fL (9.4-12.4); Monocytes Absolute Auto 1.1 X10*3/uL (0.1-1.2); Monocytes Percent Auto 7.4 % (2-11); Neutrophils Absolute Auto 11.7 X10*3/uL (2.0-8.3); Neutrophils Percent Auto 78.4 % (45-73); Platelet Count 258 X10*3/uL (160-400); Red Blood Count 5.11 X10*6/uL (4.60-5.80); White Blood Count 14.9 X10*3/uL (4.8-10.8)
[2021-04-21 18:06] LABS: Alanine Aminotransferase 18 U/L (0-40); Albumin Level 4.4 g/dL (3.5-5.0); Alkaline Phosphatase 66 U/L (39-117); Anion Gap 15 (12-20); Aspartate Amino Transferase 11 U/L (5-37); Bilirubin Total 0.9 mg/dL (0.0-1.0); Blood Urea Nitrogen 20 mg/dL (9-16); Calcium 9.3 mg/dL (8.4-10.2); Carbon Dioxide 22 mmol/L (22-29); Chloride 107 mmol/L (96-108); Creatinine Clr Calc Pharmacy 126.3; Estimated Glomerular Filt Rate > 60; Glucose Random 81 mg/dL (60-115); Potassium 3.8 mmol/L (3.3-5.1); Sodium 140 mmol/L (135-145); Total Protein 7.4 g/dL (6.5-8.0)
[2021-04-21] MEDS: Morphine Sulfate 4 MG/ML CARTRIDGE IVPUSH ×2 (18:34→20:40)
[2021-04-21] MEDS: ondansetron HCL 4 MG/2 ML VIAL IVPUSH (18:34)
[2021-04-21] MEDS: 0.9 % Sodium Chloride 1,000 ML 999 ML IVCONT (18:35)
[2021-04-21] MEDS: Ketorolac Tromethamine 30 MG/ML VIAL IVPUSH (18:35)
[2021-04-21 18:37] VITALS: BP 152/78; PULSE 69; RESP 18; TEMP 36.8; O2SAT 96
[2021-04-21 19:44] VITALS: BP 129/54; PULSE 69; RESP 16; TEMP 36.9; O2SAT 99
[2021-04-21] MEDS: levoFLOXacin 500 MG TABLET PO (20:10)
[2021-04-21 20:52] VITALS: BP 136/78; PULSE 82; RESP 18
== END 2021-04-21 20:53 | disposition home or self-care (01) ==
PROVIDERS: Emergency Provider Internal Medicine; PCP Family Medicine
DX: N13.2 Hydronephrosis with renal and ureteral calculous obstruction (principal); N39.0 Urinary tract infection, site not specified; R10.32 Left lower quadrant pain
CPT/HCPCS: 36415; 74176; 80053; 81001; 81003; 85025; 87086; 96361; 96374; 96375; 96376; 99284; J1885; J2270; J2405

== ENCOUNTER 2021-04-28 22:49 | Inpatient (IN) | payer BC, SELFPAY ==
[2021-04-29] VITALS (8 sets, daily range): BP systolic 122–163; BP diastolic 75–96; PULSE 67–92; RESP 14–18; TEMP 35.7–36.8; O2SAT 95–98; BMI 40.4
[2021-04-29 00:57] LABS: Glucose Urine UA 100 MG/DL (NEG); PH 6.5 (5.0-8.0); Specific Gravity - Urine 1.015 (1.005-1.025); Urine Blood 3+ (NEG); Urine Ketones 15 MG/DL (NEG); Urine Protein 3+ MG/DL (NEG-TRACE)
[2021-04-29 01:04] LABS: Appearance Urine TURBID; Color Urine RED
[2021-04-29 01:05] LABS: Nitrite Urine NEG (NEG)
[2021-04-29 01:06] LABS: Leukocyte Esterase Urine NEG (NEG)
[2021-04-29 01:12] LABS: RBC Urine TNTC /HPF (0); WBC Urine 0-2 /HPF (0-4)
[2021-04-29] MEDS: 0.9 % Sodium Chloride 2,000 ML 999 ML IV (02:21)
[2021-04-29 02:23] LABS: MANUAL DIFF FLAG NO
[2021-04-29 02:25] LABS: Basophils Absolute Auto 0.1 X10*3/uL (0.0-0.2); Basophils Percent Auto 0.5 % (0-2); Eosinophils Absolute Auto 0.2 X10*3/uL (0.0-0.4); Eosinophils Percent Auto 1.4 % (0-4); Hematocrit 36.9 % (42-52); Hemoglobin 12.2 g/dl (14.0-18.0); Imm Gran Abs Auto 0.09 X10*3/uL (0.00-0.03); Imm Gran Pct Auto 0.8 % (0.0-0.4); Lymphocytes Absolute Auto 2.6 X10*3/uL (1.2-4.9); Lymphocytes Percent Auto 23.2 % (20-40); Mean Corpuscular HGB Conc 33.1 g/dl (31.0-36.0); Mean Corpuscular Hemoglobin 28.1 pg (27.0-33.0); Mean Platelet Volume 9.4 fL (9.4-12.4); Monocytes Absolute Auto 0.9 X10*3/uL (0.1-1.2); Monocytes Percent Auto 7.9 % (2-11); Neutrophils Absolute Auto 7.5 X10*3/uL (2.0-8.3); Neutrophils Percent Auto 66.2 % (45-73); Platelet Count 228 X10*3/uL (160-400); Red Blood Count 4.34 X10*6/uL (4.60-5.80); Red Cell Distribution Width 13.8 % (11.0-16.0); White Blood Count 11.3 X10*3/uL (4.8-10.8)
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
[2021-04-29 03:03] LABS: Alanine Aminotransferase 21 U/L (0-40); Albumin Level 3.8 g/dL (3.5-5.0); Alkaline Phosphatase 59 U/L (39-117); Anion Gap 13 (12-20); Aspartate Amino Transferase 16 U/L (5-37); Bilirubin Total 0.4 mg/dL (0.0-1.0); Blood Urea Nitrogen 18 mg/dL (9-16); Calcium 8.5 mg/dL (8.4-10.2); Carbon Dioxide 22 mmol/L (22-29); Chloride 110 mmol/L (96-108); Creatinine Clr Calc Pharmacy 157.9; Estimated Glomerular Filt Rate > 60; Glucose Random 116 mg/dL (60-115); Potassium 3.6 mmol/L (3.3-5.1); Sodium 141 mmol/L (135-145); Total Protein 6.4 g/dL (6.5-8.0)
[2021-04-29] MEDS: Lidocaine HCl 2 % Urojet 10 ML JEL.PF.APP TOPICAL (03:24)
[2021-04-29] MEDS: LORazepam 2 MG/ML VIAL 0.5 MG IVPUSH (03:24)
[2021-04-29] MEDS: Ketorolac Tromethamine 15 MG/ML VIAL IVPUSH (04:57)
[2021-04-29 06:49] LABS: INTERNATIONAL NORM RATIO 1.3 (0.9-1.1); Prothrombin Time 15.1 SEC (10.8-13.0)
--- NOTE | 2021-04-29 07:11 | PC.NURSE ---
report taken from Robles AGUIAR. pt in room, resting with eyes closed. 1250 of clear, pink urine emptied from catheter bag. new bag started slowly.. Per Robles, waiting for Urologist to see pt for dispo.
--- NOTE | 2021-04-29 09:13 | PC.NURSE ---
# way fallon catheter continues to drain a light punch colored urine. No clots visualized in the collection bag or tubing. Pt denies pain at this time.
--- NOTE | 2021-04-29 10:55 | PC.NURSE ---
Addendum entered by Penny Grande RN 04/29/21 11:51: Pt aware that the plan is to admit him. His CBI remains clamped at this time with light punch colored urine flowing freely with no clots visualized. COVID swab ordered for admission and lunch ordered for pt. Original Note: 10:00: Pt getting very frustrated with plan of care. The plan was re-explained to pt and his CBI was clamped in orer to evaluate true urine color. 10:30 this RN and MD at bedside for eval. Urine was darker than when CBI was infusing. 10:57 MD is discussing plan of care with urologist at this time.
[2021-04-29 12:12] LABS: COVID-19 Test Negative (Negative); IDNOW Serial# 08D9AD1C
[2021-04-29] MEDS: HYDROmorphone HCl 0.5 MG/0.5 ML SYRINGE IVPUSH (13:21)
--- NOTE | 2021-04-29 13:35 | PC.NURSE ---
Pt medicated for pain. Pt c/o pain to lower pelvic area. Hand irrigation w/o clots visuaized. Pt placed back on CBI with clear outflow when wide open. When on medium flow output is a very light shade of pink.
[2021-04-29 15:32] LABS: Glucose Urine UA NEG (NEG); Leukocyte Esterase Urine NEG (NEG); Nitrite Urine NEG (NEG); Urine Blood 3+ (NEG); Urine Ketones NEG (NEG); Urine Protein NEG (NEG-TRACE)
[2021-04-29 15:55] LABS: Appearance Urine CLOUDY; Color Urine PINK
[2021-04-29 15:56] LABS: RBC Urine TNTC /HPF (0); WBC Urine 0-2 /HPF (0-4)
[2021-04-29] MEDS: 0.9 % Sodium Chloride Flush 3 ML SYRINGE IVFLUSH (16:28)
--- NOTE | 2021-04-29 18:26 | PC.NURSE ---
Pt offered a rectal suppository that was ordered PRN for pain and pelvic floor relaxation by . Pt refusing at this time. made aware. Pt was educated on the indication for the suppository but wishes not to have it at this time.
[2021-04-29] MEDS: Ketorolac Tromethamine 15 MG/ML VIAL IV (23:52)
[2021-04-30] MEDS: 0.9 % Sodium Chloride Flush 3 ML SYRINGE IVFLUSH ×4 (03:08→23:58)
[2021-04-30 03:25] VITALS: BP 145/77; PULSE 72; RESP 18; TEMP 36.2; O2SAT 96
--- NOTE | 2021-04-30 05:57 | PC.NURSE ---
pt continues to be frustrated with MD and pts own situation. Pt states he wishes to change physicians and doesnt want Dr. Huang in the room. Pt was requesting something for pain in the groin area other than the suppository- pt states the suppository gives him bowel problems as it has happened in the past. MD notified and did not order any other medications. Nursing corduroy cutting supervisor made aware of pts frustration and messaged Dr. Huang. Dr. Huang ordered Toradol Q6 for pain. Nursing corduroy cutting supervisor also educated pt and pt agreed to try the suppository belladonna along with the PRN toradol. Pt reported positive effect from the PRN medication/s.
[2021-04-30] MEDS: Omeprazole 40 MG CAPSULE.DR PO (06:06)
[2021-04-30] MEDS: Ketorolac Tromethamine 15 MG/ML VIAL IV ×3 (06:11→23:58)
[2021-04-30 07:25] VITALS: BP 122/77; PULSE 76; RESP 16; TEMP 36.4; O2SAT 97
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
[2021-04-30 11:20] VITALS: BP 133/74; PULSE 73; RESP 16; TEMP 36.6; O2SAT 98
--- NOTE | 2021-04-30 14:59 | MHC.CM.PN ---
CM MET WITH PT WHO REPORTS HE LIVES WITH HIS AND IS INDEPENDENT WITH ALL CARE AND MOBILITY. PT USES A CPAP AT NIGHT AND HAS NO IN HOME SERVICES. PT REPORTS HIS PCP IS DR MAURICIO FIELDS AT [facility] AND STATES HE HAS A HCP COMPLETED NAMING HIS HIS AGENT. CURRENT DC PLAN IS HOME WITH NO SERVICES CAR IS IN LOT, PT WILL DRIVE HIMSELF HOME
[2021-04-30 15:30] VITALS: BP 129/78; PULSE 81; RESP 15; TEMP 36.6; O2SAT 97
[2021-04-30 19:10] VITALS: BP 124/73; PULSE 91; RESP 15; TEMP 36.4; O2SAT 96
[2021-04-30 23:59] VITALS: BP 142/73; PULSE 76; RESP 18; TEMP 36.9; O2SAT 97
[2021-05-01 03:19] VITALS: BP 141/69; PULSE 72; RESP 18; TEMP 36.6; O2SAT 98
[2021-05-01] MEDS: Ketorolac Tromethamine 15 MG/ML VIAL IV (05:52)
[2021-05-01] MEDS: Omeprazole 40 MG CAPSULE.DR PO (05:52)
--- NOTE | 2021-05-01 07:35 | P.CDIC_ITS ---
CDI Concurrent Query Service Date: 05/01/21 Documentation Clarification: Please clarify if you are treating a proba ble/suspected/likely or confirmed: Morbid Obesity Other Obesity, please specify if known Provider Response: Morbid Obesity PLEASE DO NOT DELETE/MODIFY EXISTING CONTENT Additional information is needed in order to code to the highest accuracy and appropriate Severity of Illness (SOI). Please clarify the information noted below in your progress notes and discharge summary. Risk Factors/Clinical Indicators/Treatments 35 year old male admitted with hematuria Treated with CBI HT 6 FT WT 135.171 kg BMI 40.4 No Nutritional consult seen in EMR CDS: Jody Zarate RN Contact Number: [phone] Please Review the information above and exercise your independent professional judgment in responding to the query. If you concur, pleas document in the PROGRESS NOTES and DISCHARGE SUMMARY. If you do not agree with the query, please document in the query above. THIS QUERY IS PART OF THE PERMANENT MEDICAL RECORD
[2021-05-01 08:00] VITALS: BP 126/90; PULSE 69; RESP 17; TEMP 36.1; O2SAT 96
[2021-05-01] MEDS: 0.9 % Sodium Chloride Flush 3 ML SYRINGE IVFLUSH (08:05)
--- NOTE | 2021-05-01 09:43 | P.PNUR_ITS ---
Subjective Subjective Date of Service: 05/01/21 Interval history: Seen this am Chambers CBI Small clots Will remove catheter today start tranexamic acid oral for 3 days in addition Risk Factors/Clinical Indicators/Treatments 35 year old male admitted with hematuria Treated with CBI HT 6 FT WT 135.171 kg BMI 40.4 No Nutritional consult seen in EMR Physical Exam Vital Signs: Vital Signs: Last Vital Signs Temp 97.0 F 05/01/21 08:00 Pulse 69 05/01/21 08:00 Resp 17 05/01/21 08:00 BP 126/90 H 05/01/21 08:00 Pulse Ox 96 05/01/21 08:00 Body Mass Index 40.4 Const: General: cooperative, healthy appearing, comfortable and no acute distress Nutritional Appearance: average body habitus Orientation/consciousness: oriented to person, oriented to place and oriented to time Eyes: General: appearance normal, both eyes and all related structures Chest: Chest palpation & inspection: normal inspection of the chest Resp: Effort & Inspection: normal respiratory effort Cardio: Rate: regular rate GI: Inspection: Yes normal to inspection Skin: Hair: normal Neuro: General: oriented to person, oriented to place and oriented to time Extrem: General: Yes normal to inspection Urology Results Labs CBC & Chem 7: 04/29/21 02:17 04/29/21 02:17 Progress Note: A&P Assessment and plan (1) Morbid obesity: Status: Acute (2) Hematuria: Status: Acute Assessment and Plan: Recinos out Tranexamic acid Fall Risk Details Current Medications: Current Medications Generic Name Dose Route Start Last Admin Trade Name Freq PRN Reason Stop Dose Admin Belladonna Alkaloids/Opium 1 supp 04/29/21 17:48 04/29/21 23:19 Opium/Belladonna 30/16.2 Supp Supp.Rect [place] 1 supp BID PRN Administration bladder spasm Ketorolac Tromethamine 15 mg 04/29/21 23:10 05/01/21 05:52 Ketorolac Tromethamine 15 Mg/Ml Vial IV 15 mg Q6H PRN Administration Pain, Moderate (Pain Scale 4-6 Omeprazole 40 mg 04/30/21 06:30 05/01/21 05:52 Omeprazole 40 Mg Capsule.Dr PO 40 mg DAILY@0630 [facility] Administration Phenazopyridine HCl 100 mg 05/01/21 09:45 Phenazopyridine Hcl 100 Mg Tablet PO BIDWM [facility] Sodium Chloride 3 ml 04/29/21 16:00 05/01/21 08:05 0.9 % Sodium Chloride Flush 3 Ml Syringe IVFLUSH 3 ml QSHIFT [facility] Administration Time Spent With Patient Time: Total time spent is greater than 50% in coordination of care (as documen korina) at patient's floor/unit and/or counseling patient: Time with patient: less than 15 minutes
[2021-05-01] MEDS: Phenazopyridine HCL 100 MG TABLET PO (11:43)
[2021-05-01 12:00] VITALS: BP 149/70; PULSE 92; RESP 18; TEMP 36.3; O2SAT 96
--- NOTE | 2021-05-01 14:01 | MHC.CM.PN ---
PATIENT IS AWARE THAT HE WILL DISCHARGE HOME TODAY WITH NO SERVICES. UROLOGIST AWARE THAT PATIENT NEEDS A RETURN TO WORK NOTE FOR 05/03/2021. LETTERHEAD LEFT ON CHART PER REQUEST.
--- NOTE | 2021-09-25 10:10 | PM.DS ---
DS: Providers Provider Date of Service: 04/29/21 Date of discharge: 05/01/21 Primary care physician: Ivan Physician Admitting clinician: Robbin Huang DS: Diagnosis Discharge Diagnosis (1) Gross hematuria: Status: Inactive DS: Summary Hospital Course Hospital Course: Resolution Time spent discussing smoking cessation with patient: 3 to 10 minutes Status at Discharge Functional status at discharge: independent ambulation Overall status at discharge: patient is back to baseline Time Spent with Patient Time attestation: Total time spent providing and/or coordinating discharge services: Discharge coordination time: Less than 30 minutes Quality: Stroke Does the patient have a stroke diagnosis?: No Discharge Plan Discharge Anticipated Discharge Date/Time: 05/01/21 22:06 Patient Disposition: Home, Self-Care Discharge Diagnosis: Hematuria Referrals: Robbin Huang MD [Physician] - 4 Weeks (has appointment already) Physician,Ivan [Primary Care Provider] - None Discharge Medications: No Action tamsulosin [Flomax] 0.4 mg capsule 0.4 mg PO DAILY Qty: 14 0RF ibuprofen 600 mg tablet 600 mg PO Q8H PRN (Reason: pain) Qty: 20 0RF prednisone 50 mg tablet 50 mg PO DAILY Qty: 4 0RF hydrocodone-acetaminophen 5-325 mg tablet 1 tab PO Q6H PRN (Reason: pain) Qty: 10 0RF penicillin V potassium 500 mg tablet 500 mg PO BID 10 Days Qty: 20 0RF ibuprofen 600 mg tablet 600 mg PO Q6H PRN (Reason: pain) Qty: 20 0RF acetaminophen 500 mg capsule 1,000 mg PO TID PRN (Reason: fever or pain) Qty: 30 0RF oxycodone 5 mg tablet 5 mg PO Q6H PRN (Reason: pain) Qty: 10 0RF Rx Instructions: Partial Fill upon patient request. lidocaine HCl [Lidocaine Viscous] 2 % solution 1 appl mucous membrane TID PRN (Reason: pain) Qty: 100 0RF omeprazole 40 mg capsule,delayed release(DR/EC) 40 mg PO BID Qty: 30 0RF cyclobenzaprine 5 mg tablet 5 mg PO TID PRN (Reason: back pain) 7 Days Qty: 21 0RF prednisone 20 mg tablet 20 mg PO DAILY 7 Days Qty: 7 0RF tamsulosin [Flomax] 0.4 mg capsule 0.4 mg PO DAILY Qty: 7 0RF polyethylene glycol 3350 [Miralax] 17 gram/dose powder 17 g PO DAILY 14 Days Qty: 238 0RF lactulose 20 gram/30 mL solution 20 g PO DAILY PRN (Reason: constipation) Qty: 1200 0RF amoxicillin-pot clavulanate [Augmentin] 875-125 mg tablet 1 tab PO BID Qty: 20 0RF pyridoxine (vitamin B6) 100 mg tablet 100 mg PO DAILY 90 Days Qty: 90 1RF Discharge Orders: Discharge Order (Routine); Ordered 05/01/21 Ordered By: Robbin Huang Diet: Advance to usual diet Activity on Discharge: As tolerated Stand Alone Forms: Patient Portal Discharge page Activity Restrictions/Additional Instructions: Return to the ER for any worsening of symptoms. Follow-up with urology on Saturday. Care Plan Goals: stone Health Concerns: stone Plan of Treatment: stone Assessment: stone Patient Instructions: Hematuria (ED) Discharge Date/Time: 05/01/21 14:17
== END 2021-05-01 14:17 | disposition home or self-care (01) | DRG 462 ==
LOC: HO.ED 04-29 07:03 → HO.EDOVER 04-29 15:42 → HO.S3 04-29 18:54
PROVIDERS: Student in an Organized Health Care Education/Training Program; Admitting Provider Urology; Emergency Provider Emergency Medicine Emergency Medical Services; Visit Provider Urology
DX: N02.9 Recurrent and persistent hematuria with unspecified morphologic changes (principal); Z68.41 Body mass index [BMI] 40.0-44.9, adult; E66.01 Morbid (severe) obesity due to excess calories; K21.9 Gastro-esophageal reflux disease without esophagitis; Z20.822 Contact with and (suspected) exposure to COVID-19; Z87.442 Personal history of urinary calculi; Z79.899 Other long term (current) drug therapy
CPT/HCPCS: 36415; 80053; 81001; 85025; 85610; 85730; 87635; 99285; J1170; J1885; J2060

== ENCOUNTER → 2021-04-29 14:31 | Outpatient (BNV) | payer BC, SELFPAY | PROVIDERS: Admitting Provider Urology; Emergency Provider Emergency Medicine Emergency Medical Services; Visit Provider Urology | DX: R31.0 Gross hematuria (principal) | CPT/HCPCS: 99499 ==

== ENCOUNTER → 2021-05-03 13:33 | Outpatient (BNVA) | payer BC, SELFPAY ==
--- NOTE | 2021-09-25 10:10 | PM.DS ---
DS: Providers Provider Date of Service: 04/29/21 Date of discharge: 05/01/21 Primary care physician: Ivan Physician Admitting clinician: Robbin Huang DS: Diagnosis Discharge Diagnosis (1) Gross hematuria: Status: Acute DS: Summary Hospital Course Hospital Course: Admit with postprocedure hematuria Resolved over 48 hours Time spent discussing smoking cessation with patient: 3 to 10 minutes Status at Discharge Functional status at discharge: independent ambulation Overall status at discharge: patient is back to baseline Time Spent with Patient Time attestation: Total time spent providing and/or coordinating discharge services: Discharge coordination time: Less than 30 minutes Quality: Stroke Does the patient have a stroke diagnosis?: No Discharge Plan Discharge Attending physician on admission: Robbin Huang Primary Care Provider: Ivan Copeland Patient Disposition: Home, Self-Care Referrals: PhysicianIvan [Primary Care Provider] - 1 Week Discharge Medications: Continued amoxicillin-pot clavulanate [Augmentin] 875-125 mg tablet 1 tab PO BID Qty: 20 RF: 0 pyridoxine (vitamin B6) 100 mg tablet 100 mg PO DAILY 90 Days Qty: 90 RF: 1 Diet: advance to usual diet Activity on Discharge: As tolerated Hospital Course: Admit with postprocedure hematuria Resolved over 48 hours
== END | disposition home or self-care (01) ==
PROVIDERS: Visit Provider Urology
DX: Z13.89 Encounter for screening for other disorder (principal)
CPT/HCPCS: 99238

== ENCOUNTER 2021-11-19 13:23 | Emergency (ER) | payer BC, SELFPAY | END 2021-11-19 19:31 | disposition left against medical advice (07) | PROVIDERS: Emergency Provider Emergency Medicine; PCP Family Medicine | DX: R10.9 Unspecified abdominal pain (principal) ==

== ENCOUNTER 2021-11-23 10:38 | Emergency (ER) | payer BC, SELFPAY ==
--- NOTE | ~2021-11-23 | CT_ITS ---
EXAMINATION: CT ABDOMEN AND PELVIS WITHOUT CONTRAST CLINICAL INFORMATION: Right-sided flank pain severe COMPARISON: Previous dated 04/21/2021 TECHNIQUE: Multidetector volumetric imaging was performed from the superior aspect of the liver through the pubic symphysis. Sagittal and coronal reformatted images were obtained on the technologist's workstation. This CT examination was performed using dose optimization techniques as appropriate, variously including the following: *Automated exposure control *Adjustment of mA and/or kV according to patient size (this includes techniques or standardized protocols for targeted exams where dose is matched to indication/reason for exam; i.e. extremities or head) *Use of iterative reconstruction technique DLP: 986 mGy-cm FINDINGS: LUNG BASES: The visualized lung bases are unremarkable. LIVER, GALLBLADDER, AND BILIARY TREE: Possible fatty liver change. The gallbladder is unremarkable with no evidence of radiopaque gallstones, gallbladder wall thickening, or obvious pericholecystic inflammatory changes. PANCREAS: Unremarkable. SPLEEN: Unremarkable. ADRENAL GLANDS: Unremarkable. KIDNEYS AND URETERS: Numerous renal calculi bilaterally. There is hydronephrosis on the right with hydroureter. Soft tissue stranding around the kidney and ureter The ureter does lead up to a 4 mm calculus at the UVJ. BLADDER: Unremarkable. GASTROINTESTINAL TRACT: Nonobstructive bowel pattern. No free fluid. ABDOMINAL WALL: No significant hernia is appreciated. LYMPH NODES: There is some mild adenopathy occurring here but stable from 12/12/2020 CT VASCULAR: Unremarkable. PELVIC VISCERA: Unremarkable. OSSEOUS STRUCTURES: Unremarkable. CT/CT abdomen pelvis wo con IMPRESSION: Exam is demonstrating mild to moderate hydronephrosis and hydroureter of the right which leads up to a 4 mm calculus at the right UVJ. Fleischner guidelines were followed.
[2021-11-23 10:40] VITALS: BP 176/90; PULSE 83; RESP 19; TEMP 36.6; O2SAT 99; BMI 40.4
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
[2021-11-23 11:16] LABS: MANUAL DIFF FLAG NO
[2021-11-23 11:17] LABS: Basophils Absolute Auto 0.1 X10*3/uL (0.0-0.2); Basophils Percent Auto 0.4 % (0-2); Eosinophils Percent Auto 0.2 % (0-4); Hematocrit 45.5 % (42.0-52.0); Hemoglobin 14.9 g/dl (14.0-18.0); Imm Gran Abs Auto 0.08 X10*3/uL (0.00-0.03); Imm Gran Pct Auto 0.5 % (0.0-0.4); Lymphocytes Absolute Auto 0.7 X10*3/uL (1.2-4.9); Lymphocytes Percent Auto 4.4 % (20-40); Mean Corpuscular HGB Conc 32.7 g/dl (31.0-36.0); Mean Corpuscular Hemoglobin 27.5 pg (27.0-33.0); Mean Corpuscular Volume 83.9 fL (80.0-98.0); Monocytes Absolute Auto 0.8 X10*3/uL (0.1-1.2); Monocytes Percent Auto 4.8 % (2-11); Neutrophils Absolute Auto 14.6 x10*3/uL (2.0-8.3); Neutrophils Percent Auto 89.7 % (45-73); Platelet Count 237 X10*3/uL (160-400); Red Blood Count 5.42 X10*6/uL (4.60-5.80); Red Cell Distribution Width 14.5 % (11.0-16.0); White Blood Count 16.2 X10*3/uL (4.8-10.8)
[2021-11-23] MEDS: Morphine Sulfate 4 MG/ML CARTRIDGE IVPUSH ×2 (11:24→12:39)
[2021-11-23 11:25] LABS: Appearance Urine HAZY; Color Urine YELLOW; Glucose Urine UA NEG (NEG); Leukocyte Esterase Urine NEG (NEG); Nitrite Urine NEG (NEG); UACC Culture Trigger NO; Urine Blood 3+ (NEG); Urine Ketones 40 MG/DL (NEG); Urine Protein NEG (NEG-TRACE)
[2021-11-23] MEDS: Ketorolac Tromethamine 30 MG/ML VIAL IVPUSH (11:25)
[2021-11-23] MEDS: 0.9 % Sodium Chloride 1,000 ML 999 ML IVCONT ×2 (11:28→12:28)
[2021-11-23 11:36] LABS: Alanine Aminotransferase 43 U/L (0-40); Albumin Level 4.4 g/dL (3.5-5.0); Alkaline Phosphatase 72 U/L (39-117); Anion Gap 12 (12-20); Aspartate Amino Transferase 43 U/L (5-37); Bilirubin Direct 0.3 mg/dL (0.0-0.5); Bilirubin Total 0.9 mg/dL (0.0-1.0); Blood Urea Nitrogen 20 mg/dL (9-16); Calcium 9.5 mg/dL (8.4-10.2); Carbon Dioxide 24 mmol/L (22-29); Chloride 107 mmol/L (96-108); Creatinine Clr Calc Pharmacy 93.4; Estimated Glomerular Filt Rate 51; Glucose Random 121 mg/dL (60-115); Magnesium 2.1 mg/dL (1.6-2.6); Potassium 4.9 mmol/L (3.3-5.1); Sodium 138 mmol/L (135-145); Total Protein 8.1 g/dL (6.5-8.0)
[2021-11-23 11:45] LABS: Bacteria Urine TRACE /LPF; WBC Urine 0-2 /HPF (0-4)
[2021-11-23 11:48] LABS: COVID-19 Test Negative (Negative); IDNOW Serial# 08D9AD1C
[2021-11-23 12:45] LABS: Lactic Acid 0.9 mmol/L (0.5-2.0)
[2021-11-23 13:38] VITALS: BP 125/77; PULSE 79; RESP 16; O2SAT 94
[2021-11-23 14:34] VITALS: BP 127/74; PULSE 76; RESP 18; TEMP 36.5; O2SAT 97
[2021-11-23] MEDS: dexAMETHasone sod phosphate 10 MG/ML VIAL IVPUSH (14:55)
[2021-11-23] MEDS: Tamsulosin HCL 0.4 MG CAPSULE PO (14:55)
[2021-11-23] MEDS: oxyCODONE HCl Immed Release 5 MG TABLET PO (16:09)
[2021-11-23 16:16] VITALS: BP 132/64; PULSE 75; RESP 18; TEMP 36.7; O2SAT 98
== END 2021-11-23 16:22 | disposition home or self-care (01) ==
PROVIDERS: Physician Assistant; Emergency Provider Emergency Medicine; PCP Family Medicine
DX: N20.1 Calculus of ureter (principal); R10.9 Unspecified abdominal pain; R11.2 Nausea with vomiting, unspecified; R50.9 Fever, unspecified; Z20.822 Contact with and (suspected) exposure to COVID-19; Z79.899 Other long term (current) drug therapy
CPT/HCPCS: 36415; 74176; 80048; 80076; 81001; 83605; 83735; 85025; 87040; 87635; 96361; 96374; 96375; 96376; 99285; 99291; J1100; J1885; J2270

== ENCOUNTER 2022-12-15 15:31 | Emergency (ER) | payer BC, SELFPAY ==
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
[2022-12-15 15:50] VITALS: BP 140/88; PULSE 102; RESP 16; TEMP 36.7; O2SAT 95; BMI 40.6
[2022-12-15] MEDS: 0.9 % Sodium Chloride 1,000 ML 999 ML IVCONT (17:09)
[2022-12-15 17:14] LABS: Influenza A PCR NEGATIVE (Negative); Influenza B PCR NEGATIVE (Negative); Resp Syncy Virus RNA Qual PCR NEGATIVE (Negative); SARS COV2 PCR INHOUSE NEGATIVE (Negative)
[2022-12-15 17:14] LABS: IDNOW Serial# 08D9AD1C; Strep A Nucleic Acid Positive (Negative)
[2022-12-15] MEDS: dexAMETHasone sod phosphate 10 MG/ML VIAL IVPUSH (17:14)
[2022-12-15] MEDS: Ketorolac Tromethamine 30 MG/ML VIAL IVPUSH (17:15)
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
[2022-12-15] MEDS: Lidocaine HCl Viscous 2 % 15 ML SOLUTION MUCOUS MEM (19:08)
[2022-12-15] MEDS: Penicillin V Potassium 250 MG TABLET 500 MG PO (19:09)
[2022-12-15] MEDS: Acetaminophen 325 MG TABLET 975 MG PO (19:09)
== END 2022-12-15 19:21 | disposition home or self-care (01) ==
PROVIDERS: Nurse Practitioner Family; Physician Assistant Medical; Emergency Provider Emergency Medicine; PCP Family Medicine
DX: J02.0 Streptococcal pharyngitis (principal); Z20.822 Contact with and (suspected) exposure to COVID-19; Z20.828 Contact with and (suspected) exposure to other viral communicable diseases; K50.90 Crohn's disease, unspecified, without complications; E66.9 Obesity, unspecified; Z68.41 Body mass index [BMI] 40.0-44.9, adult
CPT/HCPCS: 0241U; 36415; 87651; 96374; 96375; 99283; 99284; J1100; J1885

== ENCOUNTER 2023-03-04 09:51 | Emergency (ER) | payer BC, SELFPAY ==
[2023-03-04 09:53] VITALS: BP 142/94; PULSE 77; RESP 18; TEMP 36.7; O2SAT 99; BMI 40.6
[2023-03-04 11:04] LABS: MANUAL DIFF FLAG NO
[2023-03-04 11:05] LABS: Basophils Absolute Auto 0.1 X10*3/uL (0.0-0.2); Basophils Percent Auto 1.3 % (0-2); Eosinophils Absolute Auto 0.3 X10*3/uL (0.0-0.4); Eosinophils Percent Auto 3.4 % (0-4); Hematocrit 43.5 % (42.0-52.0); Imm Gran Abs Auto 0.14 X10*3/uL (0.00-0.03); Imm Gran Pct Auto 1.5 % (0.0-0.4); Lymphocytes Absolute Auto 2.5 X10*3/uL (1.2-4.9); Lymphocytes Percent Auto 25.4 % (20-40); Mean Corpuscular HGB Conc 32.2 g/dl (31.0-36.0); Mean Platelet Volume 10.1 fL (9.4-12.4); Monocytes Absolute Auto 0.6 X10*3/uL (0.1-1.2); Monocytes Percent Auto 6.1 % (2-11); Neutrophils Percent Auto 62.3 % (45-73); Platelet Count 245 X10*3/uL (160-400); Red Blood Count 5.18 X10*6/uL (4.60-5.80); Red Cell Distribution Width 14.8 % (11.0-16.0); White Blood Count 9.7 X10*3/uL (4.8-10.8)
[2023-03-04 11:18] LABS: Alanine Aminotransferase 62 U/L (0-40); Albumin Level 4.2 g/dL (3.5-5.0); Alkaline Phosphatase 68 U/L (39-117); Anion Gap 11 (12-20); Aspartate Amino Transferase 33 U/L (5-37); Bilirubin Total 0.5 mg/dL (0.0-1.0); Blood Urea Nitrogen 15 mg/dL (9-16); Calcium 8.5 mg/dL (8.4-10.2); Carbon Dioxide 22 mmol/L (22-29); Chloride 112 mmol/L (96-108); Creatinine Clr Calc Pharmacy 123.3; Estimated Glomerular Filt Rate > 60; Glucose Random 96 mg/dL (60-115); Potassium 4.1 mmol/L (3.3-5.1); Sodium 141 mmol/L (135-145); Total Protein 7.1 g/dL (6.5-8.0)
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
== END 2023-03-04 12:52 | disposition home or self-care (01) ==
PROVIDERS: Emergency Provider Emergency Medicine; PCP Family Medicine
DX: R07.81 Pleurodynia (principal); R10.12 Left upper quadrant pain; Z79.899 Other long term (current) drug therapy
CPT/HCPCS: 36415; 80053; 85025; 99282; 99283

== ENCOUNTER 2023-08-02 11:42 | Emergency (ER) | payer BC, SELFPAY ==
--- NOTE | ~2023-08-02 | XR_ITS ---
EXAMINATION: XR ABDOMEN KUB CLINICAL INDICATION: Abdominal pain COMPARISON: None available. TECHNIQUE: AP view of the abdomen. FINDINGS: The bowel gas pattern is normal with no evidence of ileus or obstruction. No free air seen. There is moderate right colonic fecal material. Bilateral nephrolithiasis observed with multiple small stones noted in each kidney. Largest on the right in the lower pole measures 3 mm. Largest on the left in the interpolar region measures 2.5 mm. XR/XR KUB IMPRESSION: Nonobstructive bowel gas pattern without any free air. Bilateral nephrolithiasis.
[2023-08-02 12:15] VITALS: BP 144/81; PULSE 80; RESP 18; TEMP 36.5; O2SAT 97; BMI 44.8
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
[2023-08-02 12:32] LABS: MANUAL DIFF FLAG NO
[2023-08-02 12:40] LABS: Basophils Absolute Auto 0.1 X10*3/uL (0.0-0.2); Basophils Percent Auto 1.4 % (0-2); Eosinophils Absolute Auto 0.4 X10*3/uL (0.0-0.4); Eosinophils Percent Auto 3.6 % (0-4); Hematocrit 44.8 % (42.0-52.0); Hemoglobin 14.5 g/dl (14.0-18.0); Imm Gran Abs Auto 0.09 X10*3/uL (0.00-0.03); Imm Gran Pct Auto 0.9 % (0.0-0.4); Lymphocytes Absolute Auto 2.6 X10*3/uL (1.2-4.9); Lymphocytes Percent Auto 25.7 % (20-40); Mean Corpuscular HGB Conc 32.4 g/dl (31.0-36.0); Mean Corpuscular Hemoglobin 26.9 pg (27.0-33.0); Mean Corpuscular Volume 83.1 fL (80.0-98.0); Mean Platelet Volume 10.4 fL (9.4-12.4); Monocytes Absolute Auto 0.6 X10*3/uL (0.1-1.2); Monocytes Percent Auto 6.2 % (2-11); Neutrophils Absolute Auto 6.4 x10*3/uL (2.0-8.3); Neutrophils Percent Auto 62.2 % (45-73); Platelet Count 242 X10*3/uL (160-400); Red Blood Count 5.39 X10*6/uL (4.60-5.80); Red Cell Distribution Width 14.3 % (11.0-16.0); White Blood Count 10.2 X10*3/uL (4.8-10.8)
[2023-08-02 12:53] LABS: Alanine Aminotransferase 38 U/L (0-40); Albumin Level 4.4 g/dL (3.5-5.0); Alkaline Phosphatase 70 U/L (39-117); Anion Gap 12 (12-20); Aspartate Amino Transferase 25 U/L (5-37); Bilirubin Total 0.4 mg/dL (0.0-1.0); Blood Urea Nitrogen 15 mg/dL (9-16); Calcium 9.3 mg/dL (8.4-10.2); Carbon Dioxide 20 mmol/L (22-29); Chloride 111 mmol/L (96-108); Creatinine Clr Calc Pharmacy 147.8; Estimated Glomerular Filt Rate > 60; Glucose Random 87 mg/dL (60-115); Lipase 32 U/L (8-78); Potassium 4.1 mmol/L (3.3-5.1); Sodium 139 mmol/L (135-145)
[2023-08-02 20:06] VITALS: BP 137/81; PULSE 81; RESP 18; TEMP 36.9; O2SAT 98
[2023-08-02 20:13] LABS: Appearance Urine Clear; Color Urine Yellow; Glucose Urine UA Negative (Negative); Leukocyte Esterase Urine Trace (Negative); Nitrite Urine Negative (Negative); UMIC TRIGGER UACC YES; Urine Blood Negative (Negative); Urine Ketones Negative (Negative); Urine Protein Negative (Neg-Trace)
[2023-08-02 20:18] LABS: Bacteria Urine None Seen (None Seen); RBC Urine 0-2 /HPF (0-2); Squamous Epithelial Cell Urine 0-2 /HPF (0-2); WBC Urine 0-5 /HPF (0-5)
== END 2023-08-02 21:05 | disposition home or self-care (01) ==
PROVIDERS: Physician Assistant; Emergency Provider Emergency Medicine
DX: K59.00 Constipation, unspecified (principal); R10.9 Unspecified abdominal pain; Z79.899 Other long term (current) drug therapy
CPT/HCPCS: 36415; 74018; 80053; 81001; 83690; 85025; 99283; 99284

== ENCOUNTER 2023-08-21 10:56 | Emergency (ER) | payer BC, SELFPAY ==
--- NOTE | ~2023-08-21 | XR_ITS ---
EXAMINATION: XR LUMBOSACRAL SPINE CLINICAL INFORMATION: Low back pain. COMPARISON: None available. TECHNIQUE: AP and lateral views of the lumbar spine and lateral view of the lumbosacral junction. FINDINGS: Mild multilevel degenerative disc disease is characterized primarily by small marginal osteophytes. There is mild facet arthropathy at L5-S1. No fracture or spondylolisthesis. Vertebral body heights are normal. Bone mineralization is normal. SI joints appear well-preserved. Multiple radiodense renal calculi overlie both kidneys. XR/XR lumbar spine 2-3V IMPRESSION: 1. Mild multilevel degenerative disc disease in the lumbar spine. No acute osseous findings. 2. Bilateral nephrolithiasis.
[2023-08-21 11:06] VITALS: BP 140/88; PULSE 76; RESP 16; TEMP 36.6; O2SAT 98; BMI 42.0
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
[2023-08-21] MEDS: predniSONE 20 MG TABLET PO (11:40)
[2023-08-21] MEDS: Cyclobenzaprine HCl 5 MG TABLET PO (11:40)
[2023-08-21] MEDS: Ketorolac Tromethamine 15 MG/ML VIAL IM (11:40)
[2023-08-21 12:45] LABS: Appearance Urine Clear; Color Urine Yellow; Glucose Urine UA Negative (Negative); Leukocyte Esterase Urine Negative (Negative); Nitrite Urine Negative (Negative); PH 5.5 (5.0-9.0); Urine Blood Negative (Negative); Urine Ketones Negative (Negative); Urine Protein Negative (Neg-Trace)
== END 2023-08-21 13:09 | disposition home or self-care (01) ==
PROVIDERS: Physician Assistant; Emergency Provider Emergency Medicine
DX: M54.50 Low back pain, unspecified (principal); M79.604 Pain in right leg; R30.0 Dysuria; Z79.899 Other long term (current) drug therapy
CPT/HCPCS: 72100; 81003; 96372; 99283; 99284; J1885

== ENCOUNTER 2023-10-04 10:56 | Emergency (ER) | payer BC, SELFPAY ==
--- NOTE | ~2023-10-04 | XR_ITS ---
EXAMINATION: XR RIBS, RIGHT CLINICAL INFORMATION: Right rib pain COMPARISON: None available. TECHNIQUE: 3 views of the right ribs were obtained. FINDINGS: Heart, mediastinum, pulmonary vessels and lung smith within normal limits. Bony structures are intact. BB is placed in the lower lateral rib cage. No rib fractures identified. XR/XR ribs RT min 3V w CXR1V IMPRESSION: No acute cardiopulmonary disease or acute bony pathology.
--- NOTE | ~2023-10-04 | CT_ITS ---
STUDY: Unenhanced CT of the chest, abdomen and pelvis INDICATION: Pain after trauma, attention right ribs and vascular COMPARISON: 11/23/21 abdomen TECHNIQUE: Continuous helical imaging obtained through chest, abdomen and pelvis without IV contrast. Reconstructed images performed in the coronal and sagittal planes. This CT examination was performed using dose optimization techniques as appropriate, variously including the following: *Automated exposure control *Adjustment of mA and/or kV according to patient size (this includes techniques or standardized protocols for targeted exams where dose is matched to indication/reason for exam; i.e. extremities or head) *Use of iterative reconstruction technique TOTAL EXAM DLP: 546 and 1357 mGy-cm, chest and abdomen respectively. 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 No consolidations, contusions, groundglass opacities or suspicious nodules. Left upper lobe calcified granuloma. Mediastinum: Unremarkable thyroid. No mediastinal or hemorrhage or pathologic lymphadenopathy. Heart and great vessels: Nonenlarged heart. No pericardial. Nonaneurysmal aorta. Mildly ectatic pulmonary arteries. Pleura: No pneumothoraces, effusions, masses or thickening. Chest wall and axilla: No pathologic lymphadenopathy. ABDOMEN AND PELVIS: Hepatobiliary: Hepatobiliary: Liver is enlarged measuring 22 cm diffuse decreased attenuation. Focal fatty sparing along the gallbladder fossa. Unremarkable gallbladder. No intra or extrahepatic biliary ductal dilatation. Spleen: Enlarged at 14.6 cm. Pancreas and adrenal glands are unremarkable. Kidneys, ureters and bladder: Nonobstructing bilateral renal calculi, largest in the right mid and lower poles measure 5 mm, largest in the left midpole measures 4 mm. No hydroureteronephrosis, renal or bladder calculi. No perinephric stranding. Urinary bladder is under distended likely accounting for wall thickening. Gastrointestinal: Well distended unremarkable stomach. Nonobstructive bowel pattern. Appendix not identified. Decompressed descending colon. No colonic pathology recognized. Lymph nodes: No pathologic lymphadenopathy. Vessels: Unremarkable. Abdominal wall: Small fat filled umbilical hernia. BONES AND SOFT TISSUES: Bony structures are intact.. Left sided L5-S1 calcified disc likely resulting in some impingement on the exiting left neuroforamen. No soft tissue hematomas are identified CT/CT abdomen pelvis wo IV con IMPRESSION: No acute posttraumatic abnormality chest, abdomen and pelvis. No acute bony pathology. Enlarged fatty liver and splenomegaly. Nonobstructing bilateral renal calculi.
--- NOTE | ~2023-10-04 | CT_ITS ---
STUDY: Unenhanced CT of the chest, abdomen and pelvis INDICATION: Pain after trauma, attention right ribs and vascular COMPARISON: 11/23/21 abdomen TECHNIQUE: Continuous helical imaging obtained through chest, abdomen and pelvis without IV contrast. Reconstructed images performed in the coronal and sagittal planes. This CT examination was performed using dose optimization techniques as appropriate, variously including the following: *Automated exposure control *Adjustment of mA and/or kV according to patient size (this includes techniques or standardized protocols for targeted exams where dose is matched to indication/reason for exam; i.e. extremities or head) *Use of iterative reconstruction technique TOTAL EXAM DLP: 546 and 1357 mGy-cm, chest and abdomen respectively. 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 No consolidations, contusions, groundglass opacities or suspicious nodules. Left upper lobe calcified granuloma. Mediastinum: Unremarkable thyroid. No mediastinal or hemorrhage or pathologic lymphadenopathy. Heart and great vessels: Nonenlarged heart. No pericardial. Nonaneurysmal aorta. Mildly ectatic pulmonary arteries. Pleura: No pneumothoraces, effusions, masses or thickening. Chest wall and axilla: No pathologic lymphadenopathy. ABDOMEN AND PELVIS: Hepatobiliary: Hepatobiliary: Liver is enlarged measuring 22 cm diffuse decreased attenuation. Focal fatty sparing along the gallbladder fossa. Unremarkable gallbladder. No intra or extrahepatic biliary ductal dilatation. Spleen: Enlarged at 14.6 cm. Pancreas and adrenal glands are unremarkable. Kidneys, ureters and bladder: Nonobstructing bilateral renal calculi, largest in the right mid and lower poles measure 5 mm, largest in the left midpole measures 4 mm. No hydroureteronephrosis, renal or bladder calculi. No perinephric stranding. Urinary bladder is under distended likely accounting for wall thickening. Gastrointestinal: Well distended unremarkable stomach. Nonobstructive bowel pattern. Appendix not identified. Decompressed descending colon. No colonic pathology recognized. Lymph nodes: No pathologic lymphadenopathy. Vessels: Unremarkable. Abdominal wall: Small fat filled umbilical hernia. BONES AND SOFT TISSUES: Bony structures are intact.. Left sided L5-S1 calcified disc likely resulting in some impingement on the exiting left neuroforamen. No soft tissue hematomas are identified CT/CT chest wo IV con IMPRESSION: No acute posttraumatic abnormality chest, abdomen and pelvis. No acute bony pathology. Enlarged fatty liver and splenomegaly. Nonobstructing bilateral renal calculi.
[2023-10-04 11:00] VITALS: BP 150/81; PULSE 79; RESP 18; TEMP 36.2; O2SAT 98; BMI 44.3
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
[2023-10-04] MEDS: Ketorolac Tromethamine 15 MG/ML VIAL IM (13:42)
== END 2023-10-04 13:44 | disposition home or self-care (01) ==
PROVIDERS: Emergency Provider Emergency Medicine
DX: S20.211A Contusion of right front wall of thorax, initial encounter (principal); R07.81 Pleurodynia; W22.8XXA Striking against or struck by other objects, initial encounter; Y93.89 Activity, other specified; Y92.9 Unspecified place or not applicable; Y99.0 Civilian activity done for income or pay; Z87.442 Personal history of urinary calculi
CPT/HCPCS: 71101; 71250; 74176; 96372; 99283; 99284; J1885

== ENCOUNTER 2023-11-14 12:28 | Emergency (ER) | payer BC, SELFPAY ==
[2023-11-14 12:51] VITALS: BP 133/92; PULSE 85; RESP 18; TEMP 36.8; O2SAT 96; BMI 44.8
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
[2023-11-14 13:31] LABS: IDNOW Serial# 58CA691E; Strep A Nucleic Acid Negative (Negative)
[2023-11-14 13:34] LABS: COVID-19 Test Positive (Negative); IDNOW Serial# 6674DD1D
[2023-11-14 13:38] LABS: IDNOW Serial# 9DB6401D; Influenza A Negative (Negative); Influenza B2 Negative (Negative)
== END 2023-11-14 14:04 | disposition home or self-care (01) ==
PROVIDERS: Physician Assistant; Emergency Provider Emergency Medicine Emergency Medical Services
DX: U07.1 COVID-19 (principal); Z79.899 Other long term (current) drug therapy
CPT/HCPCS: 87502; 87635; 87651; 99282; 99283

== ENCOUNTER 2023-12-06 11:37 | Emergency (ER) | payer BC, SELFPAY ==
--- NOTE | ~2023-12-06 | CT_ITS ---
EXAMINATION: CT ABDOMEN AND PELVIS WITHOUT CONTRAST CLINICAL INFORMATION: Left flank pain radiating to the groin. COMPARISON: 10/04/2023 TECHNIQUE: Multidetector volumetric imaging was performed from the superior aspect of the liver through the pubic symphysis. Sagittal and coronal reformatted images were obtained on the technologist's workstation. This CT examination was performed using dose optimization techniques as appropriate, variously including the following: *Automated exposure control *Adjustment of mA and/or kV according to patient size (this includes techniques or standardized protocols for targeted exams where dose is matched to indication/reason for exam; i.e. extremities or head) *Use of iterative reconstruction technique DLP: 1160 mGy-cm FINDINGS: Lung bases are normal. Chronic hepatomegaly and diffuse hepatic steatosis. Liver parenchyma has density in the range of -8 to -18 HU on these noncontrast images. Gallbladder is unremarkable. No dilated bile ducts. Pancreas is normal. Chronic mild splenomegaly. Spleen measures up to 14.3 cm maximum dimension. Adrenal glands normal. Kidneys are normal in size. Again noted are multiple calyceal stones within each kidney. The stones are in the size range of 0.2 cm to 0.4 cm. A 0.3 cm stone is present in the mid left ureter (at L5 level of the ureter). However, there is no associated hydroureter or hydronephrosis. The right ureter is unremarkable. Urinary bladder is normal. No dilated bowel loops. No focal bowel wall thickening, mesenteric fat stranding or free fluid. Abdominal aorta is normal in caliber. No pathologic sized lymph nodes. Prostate gland is unremarkable. No pelvic free fluid. No suspicious osseous lesions. CT/CT abdomen pelvis wo IV con IMPRESSION: * Bilateral nephrolithiasis. * Although a 0.3 cm stone is present in the mid left ureter, there is no associated hydroureter or hydronephrosis. * Chronic hepatosplenomegaly and diffuse hepatic steatosis.
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
[2023-12-06 12:21] VITALS: BP 129/83; PULSE 74; RESP 16; TEMP 36.5; O2SAT 98; BMI 43.8
[2023-12-06 13:46] LABS: MANUAL DIFF FLAG NO
[2023-12-06 13:51] LABS: Basophils Absolute Auto 0.1 X10*3/uL (0.0-0.2); Basophils Percent Auto 1.1 % (0-2); Eosinophils Absolute Auto 0.3 X10*3/uL (0.0-0.4); Eosinophils Percent Auto 2.6 % (0-4); Hematocrit 43.2 % (42.0-52.0); Imm Gran Abs Auto 0.05 X10*3/uL (0.00-0.03); Imm Gran Pct Auto 0.5 % (0.0-0.4); Lymphocytes Absolute Auto 2.3 X10*3/uL (1.2-4.9); Lymphocytes Percent Auto 22.3 % (20-40); Mean Corpuscular HGB Conc 32.4 g/dl (31.0-36.0); Mean Corpuscular Hemoglobin 26.8 pg (27.0-33.0); Mean Corpuscular Volume 82.8 fL (80.0-98.0); Mean Platelet Volume 10.3 fL (9.4-12.4); Monocytes Absolute Auto 0.7 X10*3/uL (0.1-1.2); Monocytes Percent Auto 6.3 % (2-11); Neutrophils Percent Auto 67.2 % (45-73); Platelet Count 246 X10*3/uL (160-400); Red Blood Count 5.22 X10*6/uL (4.60-5.80); Red Cell Distribution Width 14.6 % (11.0-16.0); White Blood Count 10.4 X10*3/uL (4.8-10.8)
[2023-12-06 13:53] LABS: Appearance Urine Clear; Color Urine Yellow; Glucose Urine UA Negative (Negative); Leukocyte Esterase Urine Trace (Negative); Nitrite Urine Negative (Negative); PH 6.5 (5.0-9.0); UMIC TRIGGER UACC YES; Urine Blood Small (1+) (Negative); Urine Ketones Trace mg/dL (Negative); Urine Protein Negative (Neg-Trace)
[2023-12-06 13:55] LABS: Bacteria Urine None Seen (None Seen); Hyaline Casts Urine 0-2 /LPF (0-2); Squamous Epithelial Cell Urine 0-2 /HPF (0-2); WBC Urine 0-5 /HPF (0-5)
[2023-12-06 14:06] LABS: Alanine Aminotransferase 67 U/L (0-40); Albumin Level 4.4 g/dL (3.5-5.0); Alkaline Phosphatase 77 U/L (39-117); Anion Gap 10 (12-20); Aspartate Amino Transferase 37 U/L (5-37); Bilirubin Total 0.7 mg/dL (0.0-1.0); Blood Urea Nitrogen 14 mg/dL (9-16); Calcium 9.4 mg/dL (8.4-10.2); Carbon Dioxide 25 mmol/L (22-29); Chloride 106 mmol/L (96-108); Creatinine Clr Calc Pharmacy 135.3; Estimated Glomerular Filt Rate > 60; Glucose Random 79 mg/dL (60-115); Potassium 3.8 mmol/L (3.3-5.1); Sodium 137 mmol/L (135-145); Total Protein 7.9 g/dL (6.5-8.0)
[2023-12-06] MEDS: Ketorolac Tromethamine 15 MG/ML VIAL IM (14:53)
== END 2023-12-06 14:58 | disposition home or self-care (01) ==
PROVIDERS: Nurse Practitioner Family; Emergency Provider Emergency Medicine
DX: N20.0 Calculus of kidney (principal); M54.50 Low back pain, unspecified; R10.84 Generalized abdominal pain; Z79.899 Other long term (current) drug therapy
CPT/HCPCS: 36415; 74176; 80053; 81001; 85025; 96372; 99283; 99284; J1885

== ENCOUNTER 2024-01-20 09:49 | Emergency (ER) | payer BC, SELFPAY ==
--- NOTE | ~2024-01-20 | XR_ITS ---
EXAMINATION: XR FOREARM, RIGHT CLINICAL INFORMATION: Impacted injury Patient states questions reniform between a trailer and a wall at 3:30 this morning COMPARISON: None available. TECHNIQUE: AP and lateral views of the right forearm were obtained. FINDINGS: There is soft tissue swelling along the radial aspect of the forearm. The bones are intact. No fracture. Imaged portions of the elbow and wrist are unremarkable. XR/XR forearm RT 2V IMPRESSION: No acute bony abnormality.
[2024-01-20 10:12] VITALS: BP 158/88; PULSE 102; RESP 16; TEMP 36.6; O2SAT 96; BMI 44.6
[2024-01-20] MEDS: Ibuprofen 600 MG TABLET PO (10:20)
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
== END 2024-01-20 12:20 | disposition home or self-care (01) ==
PROVIDERS: Emergency Provider Emergency Medicine
DX: S50.11XA Contusion of right forearm, initial encounter (principal); W22.8XXA Striking against or struck by other objects, initial encounter; Y93.9 Activity, unspecified; Y92.9 Unspecified place or not applicable; Y99.0 Civilian activity done for income or pay
CPT/HCPCS: 73090; 99283

== ENCOUNTER 2024-05-15 11:34 | Emergency (ER) | payer BC, SELFPAY ==
--- NOTE | ~2024-05-15 | CT_ITS ---
EXAMINATION: CT ABDOMEN AND PELVIS WITHOUT CONTRAST CLINICAL INFORMATION: Pain. Evaluate for stones. COMPARISON: 12/06/2023 TECHNIQUE: Multidetector volumetric imaging was performed from the superior aspect of the liver through the pubic symphysis. Sagittal and coronal reformatted images were obtained on the technologist's workstation. This CT examination was performed using dose optimization techniques as appropriate, variously including the following: *Automated exposure control *Adjustment of mA and/or kV according to patient size (this includes techniques or standardized protocols for targeted exams where dose is matched to indication/reason for exam; i.e. extremities or head) *Use of iterative reconstruction technique DLP: 957 mGy-cm FINDINGS: LUNG BASES: Normal. No pulmonary consolidation or pleural effusion. HEPATOBILIARY: Diffuse hepatic steatosis and hepatomegaly. The right lobe of liver is approximately 24 cm in craniocaudal dimension. Gallbladder has a normal appearance. No dilated bile ducts. PANCREAS: No edema, pancreatic ductal dilatation or mass. SPLEEN: 14.6 cm maximum dimension. ADRENAL GLANDS: Normal. KIDNEYS AND URETERS: Multiple bilateral calyceal stones there are at least ten calculi of the right kidney, including several punctate calculi, and largest stones in the lower pole measuring up to 0.4 cm. The stones are too small for acquisition of a reliable density measurement. The highest pixel value that can be measured within the largest stone at the lateral aspect of the mid to lower pole is 1270 Hounsfield units. This stone is 14.6 cm deep from the skin surface at the posterior axillary line. Mild right hydronephrosis is caused by a cluster of three stones which range in size from 0.2 cm to 0.3 cm at the L5-S1 level of the distal ureter, and the 0.3 cm stone has a maximum pixel value of 1230 Hounsfield units. Left kidney also appears to have at least ten calyceal stones, including several punctate calculi. The largest stone in the interpolar area measures up to 0.4 cm, 11.2 cm deep from the skin surface at the posterior axillary line, maximum pixel value of 1200 Hounsfield units. No left ureteral stones or hydroureteronephrosis. BLADDER: Normal. BOWEL AND PERITONEUM: No acute findings along the gastrointestinal tract. No dilated bowel loops. No mesenteric fat stranding or free fluid. ABDOMINAL WALL: Unremarkable. VASCULATURE: Abdominal aorta is normal in caliber. LYMPH NODES: No pathologic sized retroperitoneal, iliac or inguinal lymph nodes. A chronically mildly enlarged periportal lymph node is 1.4 cm short axis dimension and likely reactive to the hepatic disease. This is unchanged in size compared to 11/23/2021 and 12/06/2023. PELVIC VISCERA: Unremarkable. MUSCULOSKELETAL: No acute or suspicious osseous abnormality. CT/CT abdomen pelvis wo IV con IMPRESSION: * Again noted is bilateral nephrolithiasis * Mild right hydronephrosis is caused by a cluster of a few stones in the distal ureter. * Chronic hepatomegaly and diffuse hepatic steatosis.
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
[2024-05-15 11:55] VITALS: BP 149/88; PULSE 73; RESP 18; TEMP 36.4; O2SAT 100; BMI 42.2
[2024-05-15 12:18] LABS: MANUAL DIFF FLAG NO
[2024-05-15 12:20] LABS: Basophils Absolute Auto 0.1 X10*3/uL (0.0-0.2); Basophils Percent Auto 1.2 % (0-2); Eosinophils Absolute Auto 0.3 X10*3/uL (0.0-0.4); Eosinophils Percent Auto 2.7 % (0-4); Hematocrit 41.7 % (42.0-52.0); Hemoglobin 13.7 g/dl (14.0-18.0); Imm Gran Abs Auto 0.06 X10*3/uL (0.00-0.03); Imm Gran Pct Auto 0.6 % (0.0-0.4); Lymphocytes Absolute Auto 2.2 X10*3/uL (1.2-4.9); Lymphocytes Percent Auto 21.4 % (20-40); Mean Corpuscular HGB Conc 32.9 g/dl (31.0-36.0); Mean Corpuscular Hemoglobin 27.1 pg (27.0-33.0); Mean Corpuscular Volume 82.6 fL (80.0-98.0); Mean Platelet Volume 9.8 fL (9.4-12.4); Monocytes Absolute Auto 0.6 X10*3/uL (0.1-1.2); Monocytes Percent Auto 5.7 % (2-11); Neutrophils Absolute Auto 6.9 x10*3/uL (2.0-8.3); Neutrophils Percent Auto 68.4 % (45-73); Platelet Count 248 X10*3/uL (160-400); Red Blood Count 5.05 X10*6/uL (4.60-5.80); Red Cell Distribution Width 15.3 % (11.0-16.0); White Blood Count 10.1 X10*3/uL (4.8-10.8)
[2024-05-15 12:21] LABS: Appearance Urine Clear; Color Urine Yellow; Glucose Urine UA Negative (Negative); Leukocyte Esterase Urine Negative (Negative); Nitrite Urine Negative (Negative); Specific Gravity - Urine 1.015 (1.005-1.025); UMIC TRIGGER UACC YES; Urine Blood Large (3+) (Negative); Urine Ketones Negative (Negative); Urine Protein Negative (Neg-Trace)
[2024-05-15 12:23] LABS: Bacteria Urine None Seen (None Seen); Hyaline Casts Urine 0-2 /LPF (0-2); RBC Urine >20 /HPF (0-2); Squamous Epithelial Cell Urine 0-2 /HPF (0-2); WBC Urine 0-5 /HPF (0-5)
[2024-05-15 12:39] LABS: Alanine Aminotransferase 35 U/L (0-40); Albumin Level 4.3 g/dL (3.5-5.0); Alkaline Phosphatase 77 U/L (39-117); Anion Gap 14 (12-20); Aspartate Amino Transferase 28 U/L (5-37); Bilirubin Total 0.4 mg/dL (0.0-1.0); Blood Urea Nitrogen 21 mg/dL (9-16); Calcium 9.5 mg/dL (8.4-10.2); Carbon Dioxide 22 mmol/L (22-29); Chloride 109 mmol/L (96-108); Creatinine Clr Calc Pharmacy 125.7; Estimated Glomerular Filt Rate > 60; Glucose Random 81 mg/dL (60-115); Magnesium 1.5 mg/dL (1.6-2.6); Potassium 3.9 mmol/L (3.3-5.1); Sodium 141 mmol/L (135-145); Total Protein 7.8 g/dL (6.5-8.0)
--- NOTE | 2024-05-15 13:46 | PC.NURSE ---
Patient resting comfortably, offers no complaints at this time. Off at CT
[2024-05-15 13:52] LABS: CT PCR NOT DETECTED (Not Detect.); NG PCR NOT DETECTED (Not Detect.)
[2024-05-15] MEDS: Magnesium Oxide 400 MG TABLET PO (13:54)
[2024-05-15] MEDS: Ketorolac Tromethamine 30 MG/ML VIAL IM (14:22)
[2024-05-15 16:23] VITALS: BP 127/71; PULSE 78; RESP 14; TEMP 36.6; O2SAT 99
[2024-05-15 17:25] VITALS: BP 157/91; PULSE 69; RESP 18; TEMP 36.8; O2SAT 98
== END 2024-05-15 17:26 | disposition home or self-care (01) ==
PROVIDERS: Physician Assistant Medical; Emergency Provider Emergency Medicine
DX: N20.1 Calculus of ureter (principal); N39.0 Urinary tract infection, site not specified; R35.0 Frequency of micturition; R39.15 Urgency of urination; R10.2 Pelvic and perineal pain; Z79.899 Other long term (current) drug therapy; Z20.2 Contact with and (suspected) exposure to infections with a predominantly sexual mode of transmission
CPT/HCPCS: 0353U; 36415; 74176; 80053; 81001; 83735; 85025; 96372; 99284; J1885

== ENCOUNTER 2025-10-29 20:20 | Emergency (ER) | payer BC, SELFPAY ==
--- NOTE | ~2025-10-29 | XR_ITS ---
CLINICAL HISTORY: chest pain 1 view chest x-ray Comparison: None Findings: Lung inflation is normal. Cardiac and mediastinal silhouettes are normal. Pulmonary arterial vasculature is normal. There is no pneumothorax or pleural effusion. No consolidative opacities. Osseous structures are normal. IMPRESSION: 1. No acute cardiopulmonary process. This document has been electronically signed by: Reynaldo Wagner III, MD PHD on 10/29/2025 21:33:53
[2025-10-29 20:28] VITALS: BP 143/75; PULSE 73; RESP 18; TEMP 36.7; O2SAT 98; BMI 34.4
--- NOTE | 2025-10-29 20:34 | ECG_ITS ---
Test Reason : chest pain Blood Pressure : */* mmHG Vent. Rate : 74 BPM Atrial Rate : 74 BPM P-R Int : 168 ms QRS Dur : 100 ms QT Int : 376 ms P-R-T Axes : 43 -15 19 degrees QTcB Int : 417 ms Normal sinus rhythm Incomplete right bundle branch block Borderline ECG When compared with ECG of 18-Dec-2020 17:52, Vent. rate has decreased by 37 bpm Incomplete right bundle branch block is now Present Referred By: Generic ED Physician Electronically Signed By: PAT TONY
[2025-10-29 20:57] LABS: Hematocrit 34.9 % (42.0-52.0); Hemoglobin 10.7 g/dl (14.0-18.0); Imm Gran Abs Auto 0.03 X10*3/uL (0.00-0.03); Imm Gran Pct Auto 0.4 % (0.0-0.4); Lymphocytes Absolute Auto 1.7 X10*3/uL (1.2-4.9); MANUAL DIFF FLAG NO; Mean Corpuscular HGB Conc 30.7 g/dl (31.0-36.0); Mean Corpuscular Hemoglobin 23.9 pg (27.0-33.0); Mean Corpuscular Volume 77.9 fL (80.0-98.0); NRBC Abs Auto 0.000 X10*3/uL (0.0-0.012); NRBC Pct Auto 0.0 /100WBC (0.0-0.2); Platelet Count 247 X10*3/uL (160-400); Red Blood Count 4.48 X10*6/uL (4.60-5.80); White Blood Count 8.6 X10*3/uL (4.8-10.8)
[2025-10-29 21:10] LABS: Alanine Aminotransferase 21 U/L (0-40); Albumin Level 4.3 g/dL (3.5-5.0); Alkaline Phosphatase 73 U/L (39-117); Anion Gap 10 (12-20); Aspartate Amino Transferase 16 U/L (5-37); Blood Urea Nitrogen 18 mg/dL (9-16); Calcium 8.7 mg/dL (8.4-10.2); Carbon Dioxide 22 mmol/L (22-29); Chloride 116 mmol/L (96-108); Creatinine Clr Calc Pharmacy 128.6; Estimated Glomerular Filt Rate > 60; Lipase 48 U/L (8-78); Potassium 3.8 mmol/L (3.3-5.1); Sodium 144 mmol/L (135-145); Total Protein 7.0 g/dL (6.5-8.0)
[2025-10-29 21:24] LABS: Troponin-I High Sensitivity < 2.7 ng/L (<3.5-35.0)
[2025-10-29 22:27] VITALS: BP 137/75; PULSE 72; RESP 16; TEMP 36.8; O2SAT 100
--- NOTE | 2025-10-29 22:36 | PC.NURSE ---
Pt coming back from triage, ambulating with steady gait. Pt placed on cardiac cath rn. Call borden within reach, all needs met at this time.
[2025-10-30 00:18] VITALS: BP 142/81; PULSE 69; RESP 19; TEMP 37; O2SAT 98
[2025-10-30 01:14] LABS: OBS Int Ctl Valid YES; OBS1 NEGATIVE (NEGATIVE)
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
[2025-10-30 01:56] VITALS: BP 141/75; PULSE 75; RESP 18; TEMP -17.7; TEMP 0; O2SAT 98
== END 2025-10-30 01:56 | disposition home or self-care (01) ==
PROVIDERS: Physician Assistant; Emergency Provider Emergency Medicine; PCP Family Medicine
DX: R10.12 Left upper quadrant pain (principal); R07.89 Other chest pain; R20.0 Anesthesia of skin; M79.602 Pain in left arm; M54.2 Cervicalgia; Z51.81 Encounter for therapeutic drug level monitoring; Z79.899 Other long term (current) drug therapy
CPT/HCPCS: 36415; 71045; 80053; 82272; 83690; 84484; 85025; 93005; 99285

== ENCOUNTER → 2025-10-29 20:34 | Outpatient (BNV) | payer BC, SELFPAY | PROVIDERS: Emergency Provider Emergency Medicine; PCP Family Medicine; Visit Provider Internal Medicine | DX: I45.10 Unspecified right bundle-branch block (principal) | CPT/HCPCS: 93010 ==

== ENCOUNTER → 2025-10-29 20:38 | Outpatient (BNV) | payer BC, SELFPAY | PROVIDERS: Visit Provider Radiology Diagnostic Radiology | DX: R07.9 Chest pain, unspecified (principal) | CPT/HCPCS: 71045 ==